=== PATIENT | male | born 1930 | race Caucasian/White ===

== ENCOUNTER 2017-12-23 12:04 | Inpatient (IN) ==
--- NOTE | 2017-12-23 12:11 | Emergency Department Report ---
SOB HPI - General Chief Complaint: Shortness of Breath/Dyspnea Stated Complaint: difficulty breathing Time Seen by Provider: 12/23/17 12:11 Source: patient Mode of arrival: ambulatory Limitations: no limitations - History of Present Illness Patient is a 87-year-old male, presents to the emergency department for evaluation of shortness of breath. Patient originally yesterday felt that he might have gotten some pill fragments stuck in the back of his throat, did see his primary care doctor who started him on third-generation cephalosporin. Patient today complains of increasing shortness of breath, cough, productive sputum. Patient was instructed to [facility] for evaluation. Patient called EMS, had himself brought to [facility]. On arrival vital signs are within defined limits satting 97% on room air. Patient's primary care physician did helpfully call report. - Related Data Home Medications Medication Instructions Recorded Confirmed diphenhydrAMINE HCl [Benadryl] 50 mg PO HS #0 01/21/13 12/23/17 Mirtazapine [Remeron] 15 mg PO HS #0 08/07/13 12/23/17 Cyanocobalamin (B-12) [Vit. B-12] 1,000 mcg INJ MONTHLY #0 08/22/15 12/23/17 Ferrous Sulfate [Iron] 325 mg PO DAILY #0 08/22/15 12/23/17 Lactose-Reduced Food [Boost High 1 bottle PO DAILY PRN #0 08/22/15 12/23/17 Protein] Pravastatin Sodium 80 mg PO HS #0 08/22/15 12/23/17 Clopidogrel Bisulfate [Clopidogrel] 75 mg PO DAILY 12/14/17 12/23/17 Doxycycline [Vibramycin] 100 mg PO BID 12/14/17 12/23/17 Duloxetine HCl 20 mg PO DAILY 12/14/17 12/23/17 Dutasteride 0.5 mg PO HS 12/14/17 12/23/17 Furosemide [Lasix 20 mg Tab] 10 mg PO DAILY 12/14/17 12/23/17 Silodosin [Rapaflo] 8 mg PO HS 12/14/17 12/23/17 Sotalol [Betapace] 80 mg PO BID 12/14/17 12/23/17 Allergies Allergy/AdvReac Type Severity Reaction Status Date / Time Iodinated Contrast- Oral and Allergy Unknown RASH, Verified 12/23/17 12:10 IV Dye FLU-LIKE S/S Penicillins Allergy Unknown RASH,FLU-LIKE Verified 12/23/17 12:10 SYMPTOMS clindamycin AdvReac Unknown DIARRHEA Verified 12/23/17 12:10 Review of Systems Constitutional: Reports: chills, weakness. Denies: fever ENT: Denies: throat pain, dental pain Cardiovascular: Reports: dyspnea on exertion. Denies: chest pain, palpitations Respiratory: Reports: cough, dyspnea, wheezes Gastrointestinal: Denies: abdominal pain, nausea, vomiting Genitourinary: Denies: dysuria, frequency Neurological: Reports: weakness (generalized nonspecific). Denies: headache PFSH Patient Stated Medical History Cardiac Arrhythmia Yes: A-FIB, ON PLAVIX Other Yes: STAGE 4 KIDNEY DISEASE MRSA Yes Depression Yes Surgical History: Surgical History. General: back, colonoscopy, hernia, other , tonsils. Cardiac: vascular bypass. Reproductive/: TURP. Joint: shoulder ( - Social History Smoking status: Never smoker Substance use type: does not use Alcohol intake frequency: does not drink Physical Exam - General General appearance: alert, in no apparent distress - ENT ENT exam: Present: normal oropharynx, mucous membranes moist, TM's normal bilaterally - Neck Neck exam: Present: trachea midline. Absent: tenderness - Chest Chest inspection: Present: normal inspection, symmetric chest wall rise. Absent : tenderness, rash - Respiratory Respiratory exam: Present: crackles (crackles in all pope in the right lobe and lower left lobe). Absent: respiratory distress, wheezes, accessory muscle use, prolonged expiratory phase - Cardiovascular Cardiovascular exam: Present: regular rate, normal rhythm, normal heart sounds - Abdominal Exam Abdominal exam: Present: soft, normal bowel sounds. Absent: distention, tenderness - Skin Skin exam: Present: warm, dry - Neurological Exam Neurological exam: Present: alert, oriented X3 - Psychiatric Psychiatric exam: Present: normal affect, normal mood Shortness of Breath/Dyspnea - [facility] Narrative Medical decision making narrative: Discuss case with Dr. Olson, she requests input from Dr. Hurtado re: bronchoscopy Discuss case with Dr. Hurtado, he will be able to perform bronchoscopy today at 4. Discuss case with Dr. Olson she will admit - Differential Diagnosis Likely: acute exacerbation of chronic obstructive airways disease, congestive heart failure, community acquired pneumonia, asthma with exacerbation, pulmonary embolism - Medical Records Attestation: I reviewed the patient's medical records. - Lab Data Attestation: I reviewed the patient's lab results. Result diagrams: 12/23/17 12:21 12/23/17 12:21 - Radiology Data Attestation: I reviewed the patient's radiology results. Chest x-ray: No acute cardiopulmonary findings Disposition Clinical Impression: Aspiration pneumonitis Disposition: 02 To [facility] Acute Care Condition: Stable - Seen By: physician
--- OUTSIDE RECORDS SUMMARY | 2017-12-23 12:15 | External Medical Summary | Referral Summary ---
:1930 Author Organization [facility], [facility] Address [address] [place] [address] [place] [id number] Care Team Providers Name Role Phone Flaquito Benoit [place] Primary Care Physician Encounter VC Date(s): 08/27/15 - 08/27/15 [facility] [place] [address] [place] [phone] [place] Discharge Disposition: 01-Home or Self Care Attending Physician: Adeline Johnson APRN Admitting Physician: Adeline Johnson APRN Vital Signs Most recent to oldest [Reference Range]: 1 Apical Heart Rate [60-100 bpm] 58 bpm *LOW* (08/27/15 9:16 AM) Blood Pressure [90-140/60-90 mmHg] 101/50 mmHg (08/27/15 9:16 AM) SpO2 90 % (08/27/15 9:16 AM) Problem List Condition Effective Dates Status Health Status Informant Backache (finding)(Confirmed) Active Coronary arteriosclerosis Active (disorder)(Confirmed) Generalized osteoarthritis Active (disorder)(Confirmed) History of multiple wide mouth bladder Active diverticula(Confirmed) Sigmoid diverticulosis(Confirmed) 02/16/08 Active Dyslipidemia(Confirmed) Active Dysphagia (disorder)(Confirmed) Active Essential hypertension Active (disorder)(Confirmed) 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(Confirmed) History of urinary retention & Active gross bladder trabeculation(Confirmed) BCC (basal cell carcinoma)(Confirmed) Active Mixed hyperlipidemia Active (disorder)(Confirmed) OA (osteoarthritis)(Confirmed) Active Peripheral vascular disease Active (disorder)(Confirmed) Sensorineural hearing loss, Active bilateral(Confirmed) Skin conditions(Confirmed) Active Sepsis(Confirmed)1 01/21/13 Active UTI (urinary tract 01/21/13 Active infection)(Confirmed)2 Chicken pox(Confirmed) Active 1hospitalization at [id number] at [facility] Allergies, Adverse Reactions, Alerts Substance Reaction Severity Status iodine Hives/Skin Rash Active penicillin Hives/Skin Rash Active Medications Avodart 0.5 mg oral capsule See Instructions, TAKE 1 CAPSULE BY MOUTH EVERY DAY, # 30 caps, 11 Refill(s), Pharmacy: [facility] [place], [place], TAKE 1 CAPSULE BY MOUTH EVERY DAY Start Date: 08/27/15 Status: OrderedB-12 See Instructions, 1,000 mcg INJECTION EVERY 28 DAYS, 0 Refill(s) Start Date: 11/16/14 Status: OrderedBenadryl 50 mg, Oral, Bedtime (once a day), 0 Refill(s) Start Date: 11/16/14 Status: OrderedEliquis 5 mg oral tablet 2.5 mg 0.5 tabs, Oral, BID, # 60 tabs, 0 Refill(s) Start Date: 11/15/14 Status: OrderedLasix 20 mg oral tablet 20 mg 1 tabs, Oral, Daily, 0 Refill(s) Start Date: 11/16/14 Status: Orderedlisinopril 20 mg oral tablet 20 mg 1 tabs, Oral, Daily, 0 Refill(s) Start Date: 11/16/14 Status: Orderedminocycline 100 mg oral tablet 100 mg 1 tabs, Oral, BID, 0 Refill(s) Start Date: 11/16/14 Status: Orderedpravastatin 80 mg oral tablet 80 mg 1 tabs, Oral, Bedtime (once a day), 0 Refill(s) Start Date: 11/16/14 Status: OrderedRapaflo 8 mg oral capsule See Instructions, TAKE 1 CAPSULE BY MOUTH EVERY DAY WITH A MEAL, # 30 caps, 5 Refill(s), Pharmacy: [facility] [place], [place], TAKE 1 CAPSULE BY MOUTH EVERY DAY WITH A MEAL Start Date: 08/27/15 Status: Orderedsotalol 80 mg oral tablet 80 mg 1 tabs, Oral, BID, 0 Refill(s) Start Date: 11/16/14 Status: Ordered Results No data available for this section Immunizations Vaccine Date Refusal Reason influenza virus vaccine, live 03/28/12 pneumococcal 23-polyvalent vaccine 03/31/11 tetanus-diphth toxoids (Td) adult/adol 06/11/09 zoster vaccine live 01/26/08 Procedures Procedure Date Related Diagnosis Body Site L2-5 Lami/Fusion1 06/06/12 Colonoscopy w/sigmoid diverticulosis2 02/16/08 Cystoscopy 03/15/06 Holmium laser ablation 03/15/06 Urethral dilatation 03/15/06 Perpheral Vascular Surgery 1999 Appendectomy 1988 Cholecystectomy 1988 Tonsillectomy 193 Circumcision FEMEROL BYPASS3 Hernia repair Prostate Surgery Rotator cuff repair 1hospitalization. Dr. [id number] history of colon carcinoma. Repeat in 5 years.3RIGHT Social History Social History Type Response Smoking Status Former smoker; Type: Cigarettes Assessment and Plan No data available for this section
--- OUTSIDE RECORDS SUMMARY | 2017-12-23 12:15 | External Medical Summary | Referral Summary ---
:1930 Author Organization [address] [facility] Address [address] [place] [address] Care Team Providers Name Role Phone Flaquito Benoit Primary Care Physician Encounter [facility] [id number] Date(s): 11/16/14 - 11/16/[address] [facility] [address] [place], [place] [address] Final: CLOSED FRACTURE OF LUMBAR VERTEBRA WITHOUT MENTION OF SPINAL CORD INJURY Final: OSTEOPOROSIS, UNSPECIFIED Final: UNSPECIFIED ESSENTIAL HYPERTENSION Final: MIXED HYPERLIPIDEMIA Final: CORONARY ATHEROSCLEROSIS OF [place] CORONARY ARTERY Final: DIVERTICULOSIS OF COLON (WITHOUT MENTION OF HEMORRHAGE) Final: PERIPHERAL VASCULAR DISEASE, UNSPECIFIED Final: OSTEOARTHROSIS, GENERALIZED, INVOLVING UNSPECIFIED SITE Final: PERSONAL HISTORY OF OTHER MALIGNANT NEOPLASM OF SKIN Final: Personal History of Tobacco Use Final: Long-Term (Current) Use of Other Medications Final: FRACTURE, CAUSE UNSPECIFIED Discharge Disposition: 01-Home or Self Care Attending Physician: Flaquito Benoit MD Admitting Physician: Flaquito Benoit MD Vital Signs Most recent to oldest [Reference Range]: 1 Temperature Temporal Artery [36.3-37.8 degC] 35.6 degC *LOW* (11/16/14 1:20 PM) Peripheral Pulse Rate [60-100 bpm] 71 bpm (11/16/14 10:02 AM) Heart Rate Monitored [60-100 bpm] 69 bpm (11/16/14 3:55 PM) Respiratory Rate [14-20 br/min] 16 br/min (11/16/14 3:55 PM) Blood Pressure [90-140/60-90 mmHg] 116/59 mmHg (11/16/14 3:55 PM) SpO2 99 % (11/16/14 3:55 PM) Problem List Condition Effective Dates Status Health [...] Active infection)(Confirmed)2 Chicken pox(Confirmed) Active 1hospitalization at [id number] at [facility] Allergies, Adverse Reactions, Alerts Substance Reaction Severity Status iodine Hives/Skin Rash Active penicillin Hives/Skin Rash Active Medications Avodart 0.5 mg oral capsule See Instructions, TAKE 1 CAPSULE BY MOUTH EVERY DAY, # 30 caps, 5 Refill(s), eRx : [facility], TAKE 1 CAPSULE BY MOUTH EVERY DAY Start Date: 01/15/15 Status: OrderedB-12 See Instructions, 1,000 mcg INJECTION [...] A MEAL, # 30 caps, 5 Refill(s), eRx: [facility], TAKE 1 CAPSULE BY MOUTH EVERY DAY WITH A MEAL Start Date: 01/15/15 Status: Orderedsotalol 80 mg oral tablet 80 mg 1 tabs, Oral, BID, 0 Refill(s) Start Date: 11/16/14 Status: Ordered Results Hematology Most recent to oldest [Reference Range]: 1 WBC [4.8-10.8 10*3/uL] 13.2 10*3/uL *HI* (11/16/14 10:13 AM) RBC [4.60-6.20 10*6/uL] 4.20 10*6/uL *LOW* (11/16/14 10:13 AM) Hgb [14.0-18.0 gm/dL] 13.3 gm/dL *LOW* (11/16/14 10:13 AM) Hct [42.0-52.0 %] 39.5 % *LOW* (11/16/14 10:13 AM) MCV [82.0-99.0 fL] 94.0 fL (11/16/14 10:13 AM) MCH [27.0-32.0 pg] 31.7 pg (11/16/14 10:13 AM) MCHC [32.0-36.0 gm/dL] 33.7 gm/dL (11/16/14 10:13 AM) RDW [11.5-14.5 %] 12.9 % (11/16/14 10:13 AM) Platelet [150-400 10*3/uL] 248 10*3/uL (11/16/14 10:13 AM) MPV [9.4-12.3 fL] 9.9 fL (11/16/14 10:13 AM) Immature Granulocytes [0.0-1.0 %] 1.6 % *HI* (11/16/14 10:13 AM) Neutrophils [51-75 %] 65 % (11/16/14 10:13 AM) Lymphocytes [20-46 %] 18 % *LOW* (11/16/14 10:13 AM) Monocytes [4-11 %] 9 % (11/16/14 10:13 AM) Eosinophils [0-4 %] 6 % *HI* (11/16/14 10:13 AM) Basophils [0-2 %] 1 % (11/16/14 10:13 AM) Neutro Absolute [1.90-7.00 10*3] 8.66 10*3 *HI* (11/16/14 10:13 AM) Lymph Absolute [0.80-3.30 10*3] 2.35 10*3 (11/16/14 10:13 AM) Faulk Absolute [0.30-1.00 10*3] 1.18 10*3 *HI* (11/16/14 10:13 AM) Eos Absolute [0.00-0.50 10*3] 0.77 10*3 *HI* (11/16/14 10:13 AM) Baso Absolute [0.00-0.20 10*3] 0.06 10*3 (11/16/14 10:13 AM) Coagulation Most recent to oldest [Reference Range]: 1 INR [0.9-1.2] * 1 (11/16/14 10:13 AM) PTT [25.0-35.0] * (11/16/14 10:13 AM) 1Result Comment: Corrected result; previously reported as 0.9 on 11/16/14 at 10: 34 by I/AUT Immunizations Vaccine Date Refusal Reason influenza virus vaccine, live 03/28/12 pneumococcal 23-polyvalent vaccine 03/31/11 tetanus-diphth toxoids (Td) adult/adol 06/11/09 zoster vaccine live 01/26/08 Procedures Procedure Date Related Diagnosis Body Site Percutaneous vertebral augmentation, including 11/16/14 cavity creation (fracture reduction and bone biopsy included when performed) using mechanical device (eg, kyphoplasty), 1 vertebral body, unilateral or bilateral cannulation, inclusive of all imaging guidance L2-5 Lami/Fusion1 06/06/12 Colonoscopy w/sigmoid diverticulosis2 02/16/08 Cystoscopy 03/15/06 Holmium laser ablation 03/15/06 Urethral dilatation 03/15/06 Perpheral Vascular Surgery 1999 Appendectomy 1988 Cholecystectomy 1988 Tonsillectomy 1937 Circumcision FEMEROL BYPASS3 Hernia repair Prostate Surgery Rotator cuff repair 1hospitalization. Dr. [id number] history of colon carcinoma. Repeat in 5 years.3RIGHT Social History Social History Type Response Smoking Status Former smoker; Type: Cigarettes Assessment and Plan No data available for this section
[2017-12-23] MEDS ORDERED: AZITHROMYCIN IV 500 MG in NS 250ml 250 ML IV ONE (12:17)
[2017-12-23] MEDS: SALINE FLUSH 10ml SYRINGE IVF PRN (12:22)
--- NOTE | 2017-12-23 13:06 | XRay Report ---
Indication: right-sided possible aspiration, Rales PROCEDURE: XR chest 2V: Encounter: Initial Comparison: 08/16/2013 Findings: There are some calcified granulomas in the right lung base. Heart size is normal. The lungs are clear. There is no focal opacity to suggest atelectasis or pneumonia. No mediastinal or hilar adenopathy. No pleural effusion. There is no significant tortuosity of the descending thoracic aorta. There is mild scoliosis with mild degenerative disc disease of the thoracic spine. There is a vascular stent in the right subclavian region. IMPRESSION: Evidence for prior granulomatous disease. No definite lobar consolidation or pleural effusion.. .
[2017-12-23] MEDS ORDERED: NS FLUSH BAG 500ml IV PRN (13:36)
[2017-12-23] MEDS ORDERED: SILVER NITRATE APPLICATOR TOP ONE (13:42)
--- NOTE | 2017-12-23 14:31 | Pulmonology Consult Note ---
History of Present Illness Consult date: 12/23/17 Requesting physician: Yissel Olson Reason for consult: pneumonia Chief complaint: aspiration History of present illness: Patient is a 87-year-old male, presents to the emergency department for evaluation of shortness of breath. Patient originally yesterday felt that he might have gotten some pill fragments stuck in the back of his throat, did see his primary care doctor who started him on third-generation cephalosporin ( Omnicef). Patient today complains of increasing shortness of breath, cough, productive sputum. Patient was instructed to [facility] for evaluation. Patient called EMS, had himself brought to [facility]. On arrival vital signs are within defined limits O2sats 97% on room air. He has leukocytosis with left shift. I was asked to evaluate the patient for aspiration pneumonia. - Related Data Home Medications Medication Instructions Recorded Confirmed diphenhydrAMINE HCl [Benadryl] 50 mg PO HS #0 01/21/13 12/23/17 Mirtazapine [Remeron] 15 mg PO HS #0 08/07/13 12/23/17 Cyanocobalamin (B-12) [Vit. B-12] 1,000 mcg INJ MONTHLY #0 08/22/15 12/23/17 Ferrous Sulfate [Iron] 325 mg PO DAILY #0 08/22/15 12/23/17 Lactose-Reduced Food [Boost High 1 bottle PO DAILY PRN #0 08/22/15 12/23/17 Protein] Pravastatin Sodium 80 mg PO HS #0 08/22/15 12/23/17 Clopidogrel Bisulfate [Clopidogrel] 75 mg PO DAILY 12/14/17 12/23/17 Doxycycline [Vibramycin] 100 mg PO BID 12/14/17 12/23/17 Duloxetine HCl 20 mg PO DAILY 12/14/17 12/23/17 Dutasteride 0.5 mg PO HS 12/14/17 12/23/17 Furosemide [Lasix 20 mg Tab] 10 mg PO DAILY 12/14/17 12/23/17 Silodosin [Rapaflo] 8 mg PO HS 12/14/17 12/23/17 Sotalol [Betapace] 80 mg PO BID 12/14/17 12/23/17 Allergies Allergy/AdvReac Type Severity Reaction Status Date / Time Iodinated Contrast- Oral and Allergy Unknown RASH, Verified 12/23/17 12:10 IV Dye FLU-LIKE S/S Penicillins Allergy Unknown RASH,FLU-LIKE Verified 12/23/17 12:10 SYMPTOMS clindamycin AdvReac Unknown DIARRHEA Verified 12/23/17 12:10 PFSH Patient Stated Medical History Cardiac Arrhythmia Yes: A-FIB, ON PLAVIX Other Yes: STAGE 4 KIDNEY DISEASE MRSA Yes Depression Yes Surgical History: Surgical History. General: back, colonoscopy, hernia, other , tonsils. Cardiac: vascular bypass. Reproductive/: TURP. Joint: shoulder ( - Social History Smoking status: Never smoker Substance use type: does not use Alcohol intake frequency: does not drink PFS Surgical History: Surgical History. General: back, colonoscopy, hernia, other , tonsils. Cardiac: vascular bypass. Reproductive/: TURP. Joint: shoulder ( - Social History Smoking status: Never smoker Substance use type: does not use Alcohol intake frequency: does not drink Medications Home Medications Medication Instructions Recorded Confirmed Type diphenhydrAMINE HCl [Benadryl] 50 mg PO HS #0 01/21/13 12/23/17 History Mirtazapine [Remeron] 15 mg PO HS #0 08/07/13 12/23/17 History Cyanocobalamin (B-12) [Vit. B-12] 1,000 mcg INJ MONTHLY #0 08/22/15 12/23/17 History Ferrous Sulfate [Iron] 325 mg PO DAILY #0 08/22/15 12/23/17 History Lactose-Reduced Food [Boost High 1 bottle PO DAILY PRN #0 08/22/15 12/23/17 History Protein] Pravastatin Sodium 80 mg PO HS #0 08/22/15 12/23/17 History Clopidogrel Bisulfate [Clopidogrel] 75 mg PO DAILY 12/14/17 12/23/17 History Doxycycline [Vibramycin] 100 mg PO BID 12/14/17 12/23/17 History Duloxetine HCl 20 mg PO DAILY 12/14/17 12/23/17 History Dutasteride 0.5 mg PO HS 12/14/17 12/23/17 History Furosemide [Lasix 20 mg Tab] 10 mg PO DAILY 12/14/17 12/23/17 History Silodosin [Rapaflo] 8 mg PO HS 12/14/17 12/23/17 History Sotalol [Betapace] 80 mg PO BID 12/14/17 12/23/17 History Allergies Allergy/AdvReac Type Severity Reaction Status Date / Time Iodinated Contrast- Oral and Allergy Unknown RASH, Verified 12/23/17 12:10 IV Dye FLU-LIKE S/S Penicillins Allergy Unknown RASH,FLU-LIKE Verified 12/23/17 12:10 SYMPTOMS clindamycin AdvReac Unknown DIARRHEA Verified 12/23/17 12:10 Exam Vital signs: Temperature 98.6 F 12/23/17 12:10 Pulse Rate 71 12/23/17 13:30 Respiratory Rate 22 12/23/17 12:10 Blood Pressure 105/52 12/23/17 13:30 Pulse Oximetry 97 12/23/17 13:30 - Constitutional no acute distress, cachectic - Routine HEENT Exam Head: Present: normocephalic. Absent: abrasion Eye: Absent: conjunctival icterus - Routine Neck Exam Present: supple, full ROM - Routine Respiratory Exam Present: decreased breath sounds. Absent: accessory muscle use - Routine Cardiovascular Exam Present: RRR - Routine Abdominal Exam Present: soft. Absent: guarding - Routine Extremities Exam Absent: cyanosis, clubbing, edema - Routine Skin Exam Present: warm. Absent: rash - Routine Neurological Exam Present: alert. Absent: motor deficit - Routine Psychiatric Exam Present: normal affect Results - Laboratory Findings CBC and BMP: 12/23/17 12:21 12/23/17 12:21 PT/INR, D-dimer D-Dimer 875 NG/ML (0-230) H 12/23/17 12:21 - Diagnostic Findings Chest x-ray: report reviewed, image reviewed Assessment and Plan (1) Aspiration into lower respiratory tract Status: Acute Assessment and plan: associated with coughing, hoarseness and leukocytosis with left shift. possible aspiration pneumonia. Recommend therapeutic bronchoscopy with BAL for micro. Empiric antibiotics. Discussed with son in law Current Visit: Yes - Time Spent With Patient Total time spent is greater than 50% in coordination of care (as documented) at patient's floor/unit and/or counseling patient: 25 - 35 minutes
[2017-12-23] MEDS ORDERED: LACRI-LUBE EYE OINT 3.5gm ONE (14:38)
--- NOTE | 2017-12-23 14:40 | History & Physical Report ---
History of Present Illness Date: 12/23/17 Chief complaint: "Choked" on a pill yesterday morning. HPI: Pt is an 87 yo male who presented to ED today for increasing weakness and respiratory concerns after choking on a pill yesterday around 0915. He states he was swallowing the pill and choked and had immediate pain/burning. He has had increasing sputum production, coughing and "gurgling" in his lungs. He saw his PCP (Dr. Benoit) yesterday and was started on an antibiotic for possible aspiration pneumonia. He hasn't been eating or drinking since this episode, so he is getting weaker, thus family opted to bring him in for evaluation. He also had a fall last week (reportedly b/c he had new shoes and this caused the fall) w/ resultant skin tear to R arm and contusion to forehead. At this point, he doesn't c/o SOA and the pain has resolved, but he is very weak and continues to have significant noises in his chest. In ED, his CXR showed no definite lobar consolidation, but his R lung sounds are significantly abnl and his WBC is 28.5. Dr. Hurtado was consulted and plans to bronch pt later this afternoon. Review of Systems All systems PM: 10-point ROS was reviewed, no additional remarkable complaints except (weakness, not eating or drinking, nauseated, hoarse voice, lungs "gurgling," cough copious amt of mucous) Past Medical History Medical History Updates: CKD, diffuse atherosclerosis w/ axillo-femoral bypass/ stent, paroxysmal afib, basal cell CA R lower eyelid, BPH, ? chronic leukemia ( follows with Dr. Virk), h/o MRSA infection (back) - on chronic atbx, HTN, HLD , depression Surgical History: spinal fusion 2011, colonoscopy, hernia repair x3, tonsils, GB , appy. vascular bypass - axillo-bi femoral 2010(w/ axillary stent place 07/15) , TURP, L shoulder Rotator cuff, surgical removal of basal cell cancer R lower eyelid Family History: Father - from peritonitis (secondary to GB surgery) Mother - from peritonitis (colostomy complication) Family History: As Above - Social History Smoking status: Former smoker (smoked from 49- - 2p) Substance use type: does not use Alcohol intake frequency: does not drink Household members: none (has a LOGISTICS SERVICE REPRESENTATIVE who comes to the home 1 hour each day and daughter helps out routinely) Current occupational status: retired Current residence: Apartment/Private Home Social history: Dr Jhonny Benoit - PCP Dr Valverde - Vascular Dr Hwang - cardiology Dr. Duran - ID Dr. Virk - mystery shopper Dr Galvez -opthalmologist Dr Valdivia - junior java developer Dr Francis - quality improvement coordinator (rn) Medications Home Medications Medication Instructions Recorded Confirmed Type diphenhydrAMINE HCl [Benadryl] 50 mg PO HS #0 01/21/13 12/23/17 History Mirtazapine [Remeron] 15 mg PO HS #0 08/07/13 12/23/17 History Cyanocobalamin (B-12) [Vit. B-12] 1,000 mcg INJ MONTHLY #0 08/22/15 12/23/17 History Ferrous Sulfate [Iron] 325 mg PO DAILY #0 08/22/15 12/23/17 History Lactose-Reduced Food [Boost High 1 bottle PO DAILY PRN #0 08/22/15 12/23/17 History Protein] Pravastatin Sodium 80 mg PO HS #0 08/22/15 12/23/17 History Clopidogrel Bisulfate [Clopidogrel] 75 mg PO DAILY 12/14/17 12/23/17 History Doxycycline [Vibramycin] 100 mg PO BID 12/14/17 12/23/17 History Duloxetine HCl 20 mg PO DAILY 12/14/17 12/23/17 History Dutasteride 0.5 mg PO HS 12/14/17 12/23/17 History Furosemide [Lasix 20 mg Tab] 10 mg PO DAILY 12/14/17 12/23/17 History Silodosin [Rapaflo] 8 mg PO HS 12/14/17 12/23/17 History Sotalol [Betapace] 80 mg PO BID 12/14/17 12/23/17 History Allergies Allergy/AdvReac Type Severity Reaction Status Date / Time Iodinated Contrast- Oral and Allergy Unknown RASH, Verified 12/23/17 12:10 IV Dye FLU-LIKE S/S Penicillins Allergy Unknown RASH,FLU-LIKE Verified 12/23/17 12:10 SYMPTOMS sulfamethoxazole AdvReac Intermediate Renal Verified 12/23/17 16:55 [From Bactrim] Insufficiency trimethoprim [From Bactrim] AdvReac Intermediate Renal Verified 12/23/17 16:55 Insufficiency clindamycin AdvReac Unknown DIARRHEA Verified 12/23/17 12:10 Exam Vital Signs: Temperature 97.4 F 12/23/17 14:24 Pulse Rate 70 12/23/17 14:24 Respiratory Rate 12 12/23/17 14:24 Blood Pressure 116/84 12/23/17 14:24 Pulse Oximetry 99 12/23/17 14:24 Height/Weight/BMI: Height 1.78 m Weight 59 kg Body Mass Index 18.6 - Constitutional Present: no acute distress, well developed, thin - Routine HEENT Exam Head: Present: normocephalic, hematoma (forehead) Eye: Present: EOMI, PERRL ENT: Present: mucous membranes moist, oropharynx clear Comments: voice is raspy/hoarse - Routine Neck Exam Present: supple. Absent: lymphadenopathy, thyromegaly - Routine Respiratory Exam Present: rhonchi, wheezes (R lung field) - Routine Cardiovascular Exam Present: RRR, no murmur - Routine Abdominal Exam Present: soft, normoactive bowel sounds. Absent: tenderness, distended - Routine Extremities Exam Present: edema (1+ R, tr L (chronic for pt since bypass surgery)), normal capillary refill - Routine Skin Exam Present: dry, warm - Routine Neurological Exam Present: alert, oriented X3, CN II-XII intact - Routine Psychiatric Exam Present: normal affect, cooperative Results - Labs CBC & Chem 7: 12/23/17 12:21 12/23/17 12:21 - Imaging and Cardiology Chest x-ray Additional comments: Date of Exam: 12/23/17 Indication: right-sided possible aspiration, Rales PROCEDURE: XR chest 2V: Findings: There are some calcified granulomas in the right lung base. Heart size is normal. The lungs are clear. There is no focal opacity to suggest atelectasis or pneumonia. No mediastinal or hilar adenopathy. No pleural effusion. There is no significant tortuosity of the descending thoracic aorta. There is mild scoliosis with mild degenerative disc disease of the thoracic spine. There is a vascular stent in the right subclavian region. IMPRESSION: Evidence for prior granulomatous disease. No definite lobar consolidation or pleural effusion.. Assessment and Plan Assessment and Plan: Assessment Sepsis (SIRS: leukocytosis, tachypnea. Source: Lung) Possible aspiration pneumonia Possible bronchial foreign body Normocytic anemia CKD Stage 3 (Dr. Francis - baseline Cr 1.4) - Pt to avoid JYOTI, ARBs, NSAIDs and Bactrim Probable renal stenosis, b/l carotid stenosis HTN HLD Nonrheumatic aortic regurgitation Diffuse atherosclerosis w/ axillo-bifemoral bypass 2010 with R axillary artery stent placement 07/15 (Dr Valverde) - on Plavix Paroxysmal afib (Dr. Hwang) - previously on warfarin but DC'd d/t fall risk Basal cell CA R lower eyelid (Dr. Galvez/Shea) BPH w/ chronic urinary retention (previously saw Dr. Johnson) ? chronic leukemia (follows with Dr. Virk) H/o MRSA infection (back) - on chronic atbx Iron deficiency B12 deficiency Depression/anorexia Plan Admit, IP. Stay to exceed 2 overnights for bronch and tx of aspiration pneumonitis and given multiple comorbidities and age. Consult to Dr Hurtado - planning bronchoscopy this afternoon Duonebs, Flagyl, Rocephin (despite PCN allergy, pt has tolerated Omnicef) for aspiration PNA Discussed venous dopplers to further w-u DDimer with pt. Pt declines as his sxs started after choking on the pill. Low likelihood of PE. Dietitian consult re: borderline low BMI/anorexia. Speech consult re: possible aspiration. PT/OT for eval of functional abilities and for strengthening. SCD's for VTE ppx Protonix IV BID for GI ppx and aspiration Full Code Dr Benoit - PCP. Case discussed with Dr. Olson, Dr. Benoit and nursing staff. 12/23/2017-6:45 PM-I examined the patient independently. I reviewed this chart, the patient history, and the WEB USER EXPERIENCE STRATEGIST's/PA's documented findings as above. We discussed and formulated the assessment and plan as above with the additions below.-Dr. Olson The patient was seen this evening in his room accompanied by his son. The patient had undergone bronchoscopy earlier today revealing trachea and main michelle were inflamed with severe mucosal injury and exudate consistent with chronic aspiration. I did discuss this with Dr. Hurtado and he recommended nothing by mouth status and consult speech therapy in the morning. These results were discussed with the patient and his son. They had previously been discussed with him by Dr. Hurtado. The patient complains of mild shortness of breath. He has a little burning pain in his chest. He denies any other pain other than feeling constipated and feels like he needs to urinate. He states he has not eaten since yesterday morning. He has drank very little. He choked on a pill yesterday morning. Before that he had noticed at times choking on water. On exam he is alert and in no acute distress. Chest reveals coarse breath sounds bilaterally. Cardiovascular reveals a regular rate and rhythm. Abdomen is soft, nontender, with hypoactive bowel sounds. Extremities are free of edema. Impression and plan Probable acute on chronic aspiration-nothing by mouth status for now including meds(discussed with the patient's nurse) IV fluids-monitor for fluid overload Consult speech therapy to see the patient tomorrow Hopefully we can resume his oral meds tomorrow Repeat Chest x-ray in the morning Rocephin and Flagyl for aspiration/rule out aspiration pneumonia Recheck CBC tomorrow regarding leukocytosis DVT Prophylaxis: SCD's GI Prophylaxis: Protonix Resuscitation Status: Full Code - Physician Narrative Physician: Yissel Olson MD Narrative: Date: 12/23/17 Time: 1436 Hospital Course Summary Disclaimer: The visit summary below is not to be considered part of the above Progress Note. Hospital Course: 12/23/17 Admit, IP. Stay to exceed 2 overnights for bronch and tx of aspiration pneumonitis and given multiple comorbidities and age. Consult to Dr Hurtado - planning bronchoscopy this afternoon Duonebs, Flagyl, Rocephin (despite PCN allergy, pt has tolerated Omnicef) for aspiration PNA Discussed venous dopplers to further w-u DDimer with pt. Pt declines as his sxs started after choking on the pill. Low likelihood of PE. Dietitian consult re: borderline low BMI/anorexia. Speech consult re: possible aspiration. PT/OT for eval of functional abilities and for strengthening. SCD's for VTE ppx Protonix IV BID for GI ppx and aspiration Full Code Dr Benoit - PCP
[2017-12-23] MEDS ORDERED: LIDOCAINE VISCOUS 2% ORAL LIQUID 15ml ONE (15:58)
[2017-12-23] MEDS ORDERED: EPINEPHrine 1mg/ml PRESERVATIVE-FREE INJ AMP ONE (16:02)
[2017-12-23] MEDS ORDERED: NS 1,000 ML IV SCH (16:15)
[2017-12-23] MEDS ORDERED: PROPOFOL 20 ML ONE (16:19)
[2017-12-23] MEDS ORDERED: MIDAZOLAM 2mg/2ml INJECTION ONE (16:19)
[2017-12-23] MEDS ORDERED: KETAMINE 500 MG/10 ML INJECTION ONE (16:19)
[2017-12-23] MEDS ORDERED: SUCCINYLCHOLINE 20mg/mL 10mL INJECTION ONE (16:21)
[2017-12-23] MEDS ORDERED: ONDANSETRON 4 MG/2 ML INJECTION IVP PRN (16:48)
[2017-12-23] MEDS ORDERED: ACETAMINOPHEN 500 MG TABLET PO PRN (16:48)
--- NOTE | 2017-12-23 16:55 | Anesthesia Preoperative Report ---
Anesthesia Preoperative Record - Date and Time Date: 12/23/17 Preoperative Diagnosis: aspiration pneumonitis NPO Since Date: 12/22/17 NPO Since Time: 20:00 Allergies/Adverse Reactions: Allergies Allergy/AdvReac Type Severity Reaction Status Date / Time Iodinated Contrast- Oral and Allergy Unknown RASH, Verified 12/23/17 12:10 IV Dye FLU-LIKE S/S Penicillins Allergy Unknown RASH,FLU-LIKE Verified 12/23/17 12:10 SYMPTOMS clindamycin AdvReac Unknown DIARRHEA Verified 12/23/17 12:10 - Vital Signs Vital Signs: Temperature 97.4 F 12/23/17 14:24 Pulse Rate 70 12/23/17 14:24 Respiratory Rate 12 12/23/17 14:24 Blood Pressure 116/84 12/23/17 14:24 Pulse Oximetry 99 12/23/17 14:24 Height and Weight: Height 5 ft 10 in Weight 59 kg Body Mass Index 18.6 - Medications Inpatient Medications: Current Medications Acetaminophen (Tylenol) 500 mg PO Q5H PRN PRN Reason: Discomfort Albuterol/Ipratropium (Duoneb) 3 ml AEROSOL RTQID DIANE Clopidogrel Bisulfate (Plavix) 75 mg PO DAILY DIANE Diphenhydramine HCl (Benadryl) 50 mg PO HS DIANE Doxycycline Hyclate (Vibramycin) 100 mg PO BID DIANE Duloxetine HCl (Cymbalta) 20 mg PO DAILY DIANE Dutasteride (Avodart) 0.5 mg PO HS DIANE Furosemide (Lasix 20 Mg Tab) 10 mg PO DAILY DIANE Sodium Chloride (Normal Saline) 1,000 mls @ 50 mls/hr IV .Q20H DIANE Ceftriaxone Sodium 1 g/ Sodium (Chloride) 100 mls @ 200 mls/hr IV Q24H DIANE Metronidazole/Sodium Chloride (Flagyl Iv Premix) 500 mg in 100 mls @ 100 mls/ hr IV Q8H DIANE Mirtazapine (Remeron) 15 mg PO HS DIANE Non-Formulary Medication (Pravastatin Sodium [Pravastatin Sodium]) 80 mg PO HS DIANE Ondansetron HCl (Zofran) 4 mg IVP Q6H PRN PRN Reason: Nausea &/or vomiting Pantoprazole Sodium (Protonix Iv) 40 mg IVP BID DIANE Silodosin (Rapaflo) 8 mg PO HS DIANE Sodium Chloride (Iv Flush) 10 - 80 ml IVF PRN PRN PRN Reason: Flushing Last Admin: 12/23/17 12:22 Dose: 10 ml Sodium Chloride (Normal Saline) 500 ml IV PRN PRN Last Admin: 12/23/17 13:48 Dose: 500 ml Sotalol HCl (Betapace) 80 mg PO BID [facility] Home Medications: Home Medications Medication Instructions Recorded Confirmed Type diphenhydrAMINE HCl [Benadryl] 50 mg PO HS #0 01/21/13 12/23/17 History Mirtazapine [Remeron] 15 mg PO HS #0 08/07/13 12/23/17 History Cyanocobalamin (B-12) [Vit. B-12] 1,000 mcg INJ MONTHLY #0 08/22/15 12/23/17 History Ferrous Sulfate [Iron] 325 mg PO DAILY #0 08/22/15 12/23/17 History Lactose-Reduced Food [Boost High 1 bottle PO DAILY PRN #0 08/22/15 12/23/17 History Protein] Pravastatin Sodium 80 mg PO HS #0 08/22/15 12/23/17 History Clopidogrel Bisulfate [Clopidogrel] 75 mg PO DAILY 12/14/17 12/23/17 History Doxycycline [Vibramycin] 100 mg PO BID 12/14/17 12/23/17 History Duloxetine HCl 20 mg PO DAILY 12/14/17 12/23/17 History Dutasteride 0.5 mg PO HS 12/14/17 12/23/17 History Furosemide [Lasix 20 mg Tab] 10 mg PO DAILY 12/14/17 12/23/17 History Silodosin [Rapaflo] 8 mg PO HS 12/14/17 12/23/17 History Sotalol [Betapace] 80 mg PO BID 12/14/17 12/23/17 History Is Patient on Beta Toñito?: Yes - Medical History Respiratory: DENIES: Asthma Cardiovascular: Reports: Arrhythmia (A-FIB, ON PLAVIX) DENIES: Congestive Heart Failure (denies) Gastrointestional: DENIES: Gastroesophageal Reflux Disease Neuro/Musculoskeletal: Reports: Depression Other History: Reports: Blood Transfusions - Surgical History GI Surgery/Treatments: Reports: Appendectomy, Cholecystectomy Musculoskeletal Surgery/Tx: Reports: Shoulder Arthroscopy (LEFT ROTATOR CUFF REPAIR) Anesthesia Reactions: None Hx Family Anesthesia Reaction: No History of Motion Sickness: No - Social History Smoking Status: Former smoker (smoked from '49-'76 - 2ppd) Hx Chewing Tobacco Use: No Second Hand Exposure: No Substance Use Type: does not use Alcohol Intake Frequency: does not drink - Pertinent Findings EKG: Sinus Rhythm - Physical Exam Respiratory Exam: Present: bilateral breath sounds equal (slightly coarse) Cardiovascular Exam: Present: regular rate and rhythm - Airway Assessment Mallampati Score: II TMD: 3 Fingerbreadths Neck Extension: good Overall Assessment: may be difficult mask vent - ASA ASA Score: 3 - Plan Anesthesia: General Inhalation Gases - Discussion Discussion: Discussed risks/options/alternatives of anesthesia and questions answered. Patient consents. Nursing pain assessment noted. Present for Discussion: family member (son in law) Attestation Statement: Prior to the delivery of any anesthetic medication, I examined the patient, developed the plan, obtained the patient's consent and discussed the risk and benefits of the procedure with the patient/guardian. - Additional Information Seen by Anesthesia: Yes
--- NOTE | 2017-12-23 16:56 | Procedure Note ---
Date of procedure: 12/23/17 Pre-op diagnosis: aspiration penumonia Post-op diagnosis: same Procedure: Bronchoscopy DATE: 12/23/17 Reason: aspiration pneumonia Time Out: completed Patient underwent anesthesia with LMA. see anesthesia notes for details The scope was passed into the trachea via LMA airway. The trachea and main michelle were inflamed with severe mucosal injury and exudate consistent with chronic aspiration R main, RUL, bronchus intermedius, RML, RLL showed diffuse mucosal inflammatory exudate consistent with chronic aspiration L main, LATRICIA, LLL were normal 1. Therapeutic aspiration of retained mucus secretions and debris 2. BAL was performed and sent for micro, cytology studies There were no complications
--- NOTE | 2017-12-23 17:09 | Anesthesia Postoperative Note ---
- Date and Time Date: 12/23/17 Time: 17:09 - Status Patient Participated in Evaluation: Patient Participated in Person Vital Signs: Temperature 97.3 F 12/23/17 16:45 Pulse Rate 79 12/23/17 17:05 Respiratory Rate 19 12/23/17 17:05 Blood Pressure 137/63 12/23/17 17:05 Pulse Oximetry 100 12/23/17 17:05 Respiratory Function: Airway Patent Cardiovascular Function: Regular Pulse EKG: Sinus Rhythm Mental Status: Alert and Oriented Pain Intensity: 0 Hydration: IV Infusing Complications During Recover: None Apparent - Follow-Up Instructions Instructions: Per Surgeon
[2017-12-23] MEDS: CEFTRIAXONE 1 G in NS 100 ML IV SCH (17:43)
[2017-12-23] MEDS: MetroNIDAZOLE PB 500 MG/100 ML BAG IV SCH (18:36)
[2017-12-23] MEDS: DUTASTERIDE 0.5 MG CAPSULE PO SCH (20:00)
[2017-12-23] MEDS: DiphenhydrAMINE 25 MG CAPSULE PO SCH (20:00)
[2017-12-23] MEDS: MIRTAZAPINE 15 MG TABLET PO SCH (20:00)
[2017-12-23] MEDS: NS 1,000 ML IV SCH (20:58)
[2017-12-23] MEDS: SOTALOL 80 MG TABLET PO SCH (20:59)
[2017-12-23] MEDS: PANTOPRAZOLE 40 MG INJECTION IVP SCH (20:59)
[2017-12-23] MEDS: PRAVASTATIN 40 MG TABLET PO SCH (20:59)
[2017-12-23] MEDS: ALBUTEROL/IPRATROPIUM 2.5mg-0.5mg/3ml NEB AEROSOL SCH (23:10)
[2017-12-24] MEDS: MetroNIDAZOLE PB 500 MG/100 ML BAG IV SCH ×3 (03:16→17:38)
[2017-12-24] MEDS: ALBUTEROL/IPRATROPIUM 2.5mg-0.5mg/3ml NEB AEROSOL SCH ×4 (07:40→21:13)
[2017-12-24] MEDS ORDERED: CLOPIDOGREL 75 MG TABLET PO SCH (09:00)
--- NOTE | 2017-12-24 09:02 | Pulmonology Progress Note ---
Subjective Principal diagnosis: Aspiration pna Interval history: Pt up to EOB, states he has cough with some sputum, still with some SOB but doing a little better. Exam Vital signs: Temperature 97.4 F 12/24/17 03:26 Pulse Rate 76 12/24/17 03:26 Respiratory Rate 20 12/24/17 07:40 Blood Pressure 108/60 12/24/17 03:26 Pulse Oximetry 98 12/24/17 07:40 Inpatient Medications: Generic Name Dose Route Start Last Admin Trade Name Freq PRN Reason Stop Dose Admin Acetaminophen 500 mg 12/23/17 16:48 Tylenol PO Q5H PRN Discomfort Albuterol/Ipratropium 3 ml 12/23/17 19:00 12/24/17 07:40 Duoneb AEROSOL 3 ml RTQID DIANE Administration Clopidogrel Bisulfate 75 mg 12/24/17 09:00 Plavix PO DAILY DIANE Diphenhydramine HCl 50 mg 12/23/17 21:00 12/23/17 20:00 Benadryl PO Not Given HS DIANE Doxycycline Hyclate 100 mg 12/23/17 21:00 12/23/17 20:00 Vibramycin PO Not Given BID DIANE Duloxetine HCl 20 mg 12/24/17 09:00 Cymbalta PO DAILY DIANE Dutasteride 0.5 mg 12/23/17 21:00 12/23/17 20:00 Avodart PO Not Given HS DIANE Furosemide 10 mg 12/24/17 09:00 Lasix 20 Mg Tab PO DAILY DIANE Ceftriaxone Sodium 1 g/ Sodium 100 mls @ 200 mls/hr 12/23/17 16:45 12/23/17 18:13 Chloride IV Infused Q24H DIANE Infusion Metronidazole/Sodium Chloride 500 mg in 100 mls @ 100 mls/hr 12/23/17 16:45 12/24/17 04:16 Flagyl Iv Premix IV Infused Q8H DIANE Infusion Sodium Chloride 1,000 mls @ 100 mls/hr 12/23/17 18:45 12/24/17 04:55 Normal Saline IV 100 mls/hr .Q10H DIANE Infusion Mirtazapine 15 mg 12/23/17 21:00 12/23/17 20:00 Remeron PO Not Given HS DIANE Ondansetron HCl 4 mg 12/23/17 16:48 Zofran IVP Q6H PRN Nausea &/or vomiting Pantoprazole Sodium 40 mg 12/23/17 21:00 12/23/17 20:59 Protonix Iv IVP 40 mg BID DIANE Administration Pravastatin Sodium 80 mg 12/23/17 21:00 12/23/17 20:59 Pravachol PO Not Given HS DIANE Silodosin 8 mg 12/23/17 21:00 12/23/17 20:59 Rapaflo PO Not Given HS DIANE Sodium Chloride 10 - 80 ml 12/23/17 12:17 12/23/17 12:22 Iv Flush IVF 10 ml PRN PRN Administration Flushing Sodium Chloride 500 ml 12/23/17 13:36 12/23/17 13:48 Normal Saline IV 500 ml PRN PRN Administration Sotalol HCl 80 mg 12/23/17 21:00 12/23/17 20:59 Betapace PO Not Given BID DIANE Discontinued Medications Generic Name Dose Route Start Last Admin Trade Name Freq PRN Reason Stop Dose Admin Azithromycin 500 mg/ Sodium 250 mls @ 250 mls/hr 12/23/17 12:17 12/23/17 13: 44 Chloride IV 12/23/17 13:16 Infused ONCE ONE Infusion Sodium Chloride 1,000 mls @ 50 mls/hr 12/23/17 16:15 12/23/17 17:30 Normal Saline IV Infused .Q20H DIANE Infusion Silver Nitrate/Potassium Nitrate 1 each 12/23/17 13:42 12/23/17 13:48 Silver Nitrate Applicator TOP 12/23/17 13:43 1 each O ONE Administration - Constitutional no acute distress, average body habitus, cooperative - Routine HEENT Exam Head: Present: normocephalic, atraumatic Eye: Present: EOMI, PERRL - Routine Neck Exam Present: supple, full ROM, trachea midline - Routine Respiratory Exam Present: decreased breath sounds, rhonchi. Absent: accessory muscle use, patient mechanically ventilated Comments: rhonchi RLL - Routine Cardiovascular Exam Present: RRR, S1, S2, no murmur - Routine Abdominal Exam Present: soft, normoactive bowel sounds - Routine Extremities Exam Present: no edema, non tender, full ROM - Routine Back/Spine/Pelvis Exam Back/Spine: Present: full ROM - Routine Skin Exam Present: intact, dry - Routine Neurological Exam Present: alert, oriented X3, CN II-XII intact - Routine Psychiatric Exam Present: normal affect, normal thought process Results - Laboratory Findings Laboratory: Laboratory Results - last 48 hr 12/23/17 12/24/17 12/24/17 16:29 04:36 04:36 WBC 26.3 H* RBC 3.44 L Hgb 10.7 L Hct 32.1 L MCV 93.3 MCH 31.1 MCHC 33.3 RDW Std Deviation 48.6 Plt Count 174 MPV 10.9 Immature Gran % (Auto) Not performed Neut % (Auto) Not performed Lymph % (Auto) Not performed Stokes % (Auto) Not performed Eos % (Auto) Not performed Baso % (Auto) Not performed Neut # (Auto) Not performed Lymph # (Auto) Not performed Stokes # (Auto) Not performed Eos # (Auto) Not performed Baso # (Auto) Not performed Abs Immat Gran (auto) Not performed Neutrophils % (Manual) 78.0 H Band Neutrophils % 4.0 Lymphocytes % (Manual) 13.0 L Monocytes % (Manual) 5.0 Neutrophils # (Manual) 20.5 H Band Neutrophils # 1.1 Lymphocytes # (Manual) 3.4 Monocytes # (Manual) 1.3 H Poikilocytosis 1+ RBC Morph Comment Abnormal Turbidity < 20 Sodium 140 Potassium 3.5 L Chloride 108 H Carbon Dioxide 23 Anion Gap 9 BUN 22.0 H Creatinine 1.1 GFR Calculation 63 BUN/Creatinine Ratio 20 Glucose 94 Calculated Osmolality 272 Calcium 8.2 L Icterus Index < 2 Specimen Hemolysis < 15 Fluid Type Bronchoalveolarlavag BAL Appearance Cloudy BAL Color Colorless BAL RBC 3000 BAL Neutrophils 92 H BAL Lymphocytes 5 BAL Eosinophils 2 H BAL Basophils 0 BAL Monocyte/Macrophage 2 BAL Other Cells 0 BAL Total Cell Count Assessment and Plan (1) Smoking hx Status: Acute Current Visit: Yes (2) Aspiration into lower respiratory tract Status: Acute Current Visit: Yes - Assessment and Plan Plan: Pt currently on RA and tolerating well. On BT's with A/A QID, still with rhonchi RLL on exam and difficulty coughing up stuff. Will add acapella. S/P bronchoscopy yesterday, cx's still pending, prelim gram stain with many neutrophils but no organism. WBC slightly better 28>26, afebrile, currently on rocephin and doxy. Will check CXR today and Wednesday, will follow. - Time Spent With Patient Total time spent is greater than 50% in coordination of care (as documented) at patient's floor/unit and/or counseling patient: less than 15 minutes
[2017-12-24] MEDS: NS 1,000 ML IV SCH (09:08)
[2017-12-24] MEDS: PANTOPRAZOLE 40 MG INJECTION IVP SCH ×2 (09:48→20:25)
--- NOTE | 2017-12-24 09:48 | XRay Report ---
LOCATION OF DICTATION: [place] EXAM: XR chest 2V HISTORY: pna COMPARISON: December 23, 2014. FINDINGS: The heart size is normal. The mediastinal configuration is unremarkable. Vascular stent is noted overlying the right upper hemithorax. Limited depth of inspiration. Slight granulomas again demonstrated within the right lung base compatible with chronic inactive granulomatous disease. There are no consolidating opacities or pleural effusions. There is no evidence for a pneumothorax. The osseous structures are within normal limits. IMPRESSION: 1. Chronic inactive granulomatous disease without evidence for developing pneumonia. .
[2017-12-24] MEDS: FUROSEMIDE 20 MG TABLET PO SCH (10:19)
[2017-12-24] MEDS: SOTALOL 80 MG TABLET PO SCH ×2 (10:19→20:26)
[2017-12-24] MEDS: DULOXETINE 20 MG CAPSULE PO SCH (10:19)
--- NOTE | 2017-12-24 10:29 | Fluoroscopy Report ---
Indication:oropharyngeal dsyphagia Procedure:FL barium swallow modified MODIFIED BAR. SWALLOW STUDY: Technique: Videofluoroscopy was performed in conjunction with a livestock sales representative from speech pathology and a separate report and recommendations will be provided. Varying gradations of barium from thin to solid were administered. Findings: Deep tracheal penetration with eventual aspiration was visualized with all consistencies of barium. On the AP view the bolus showed no obvious preference for either side. Impression: Deep tracheal penetration with eventual aspiration with all consistencies of barium. Please see the speech pathology report for additional details and recommendations. Fluoroscopy dose: 1.20 mGy (Cumulative air kerma) Viet Tripp RPA/JULIENNE performed this under my direct supervision. .
[2017-12-24] MEDS ORDERED: POTASSIUM CHLORIDE INJ 20 MEQ in NS 1,000 ML IV SCH (12:00)
[2017-12-24] MEDS ORDERED: NS with KCL 20 mEq 1,000 ML IV SCH (13:00)
--- NOTE | 2017-12-24 14:45 | XRay Report ---
EXAM: XR abdomen 1V DICTATION LOCATION: [facility] INDICATION: to determine if NG is in adequate placement to start TF COMPARISON STUDY: None available. FINDINGS: Abdomen: Placement of NG tube which extends into the body the stomach. The side-port is located about the gastroesophageal junction. This could be advanced an additional 2 to 3 cm. There are few mildly distended gas containing loops of bowel overlying the mid abdomen. The findings could indicate underlying ileus. There is no free intraperitoneal air. Skeletal Structures: There is moderate spondylosis demonstrated within the lumbar spine.. Vertebroplasty is noted about the L1 vertebra. Posterior spinal fixation and laminectomy defects extending from L2 through L5 level. IMPRESSION: 1. Placement of nasoenteric catheter with the tip extending to the body the stomach. The side-port is located about the GE junction. Recommend advancing 2 to 3 cm. 2. Mildly prominent gas containing bowel loops. Leading consideration is ileus. Follow-up is recommended. No free intraperitoneal air. .
[2017-12-24 15:51] VITALS: BMI 19.0
--- NOTE | 2017-12-24 16:39 | XRay Report ---
EXAM: XR abdomen 1V DICTATION LOCATION: [facility] INDICATION: check for ngt placement. COMPARISON STUDY: None available. FINDINGS: Abdomen: Interval advancement of the Nasoenteric catheter which now extends into the body and fundus of the stomach with the tip overlying the body. There is mild gaseous distention of the bowel loops which may be secondary to ileus. No clear evidence for bowel obstruction or free air. Mild bibasilar atelectasis. Multiple leads overlie the patient. Posterior spinal fixation is demonstrated. Vertebroplasty at L1 vertebra. Impression: 1. Interval advancement of the nasoenteric catheter which is in good position. 2. The bowel loops are stable in appearance. .
[2017-12-24] MEDS: CEFTRIAXONE 1 G in NS 100 ML IV SCH (16:42)
--- NOTE | 2017-12-24 20:08 | Progress Note ---
- Date 12/24/17 Subjective: The patient was seen twice in his room earlier today. He underwent modified barium swallow and verbal report from the speech therapist was that he had severe aspiration with both thin and thickened liquids as well as with putting. She recommended strict nothing by mouth. The patient states that his burning pain in his chest is improving. His breathing is a little better and cough is a little better. He denies any other pain. He states he has been chronically weak. He has lost about 50 pounds. He has had progressive numbness and tingling in his feet and legs and is not able to drive because he could not feel the foot pedals. Objective Vital signs: Temperature 98.8 F 12/24/17 15:34 Pulse Rate 76 12/24/17 16:00 Respiratory Rate 20 12/24/17 16:25 Blood Pressure 135/83 12/24/17 15:34 Pulse Oximetry 97 12/24/17 16:25 Height/Weight/BMI: Height 1.78 m Weight 60.1 kg Body Mass Index 19.0 Comments: GEN-alert, oriented, no acute distress. Does become tearful when we discussed his poor swallow HEENT-sclera anicteric, oropharynx is moist NECK-supple CV-regular rate and rhythm, 2/6 systolic murmur CHEST-coarse breath sounds bilaterally ABD-soft, nontender with positive bowel sounds -no Ramesh EXT-no edema NEURO-cranial nerves II through XII grossly intact, motor strength 5 over 5 and equal in the upper extremities, leg strength proximal is 4 over 5 and equal. Distal leg and foot motor strength is 5 over 5 SKIN-warm and dry, multiple skin lesions with history of skin cancer. Grayish blue discoloration on his face from medication. Results - Labs CBC & Chem 7: 12/24/17 04:36 12/24/17 04:36 Labs: Prealbumin low at 9.8. Vitamin B-12 greater than 1000. TSH normal at 1.11. Phosphorus normal at 3.9. Microbiology Results: Microbiology 12/23/17 16:29 Bronchial Washing Acid Fast Bacilli Culture & Smear - Preliminary 12/23/17 16:29 Mini-Bal Fungal Culture and Stain - Preliminary 12/23/17 16:29 Bal, Right Lower Lobe Gram Stain - Final 12/23/17 16:29 Bal, Right Lower Lobe Bronchial Aspirate Culture - Preliminary Early growth - Impressions Chest x-ray today shows chronic inactive granulomatous disease without evidence for developing pneumonia Assessment and Plan Assessment and Plan: Assessment Severe aspiration of all consistencies -recommend strict nothing by mouth Sepsis (SIRS: leukocytosis, tachypnea. Source: Lung) aspiration pneumonia/pneumonitis Normocytic anemia CKD Stage 3 (Dr. Francis - baseline Cr 1.4) - Pt to avoid JYOTI, ARBs, NSAIDs and Bactrim Probable renal stenosis, b/l carotid stenosis HTN HLD Nonrheumatic aortic regurgitation Diffuse atherosclerosis w/ axillo-bifemoral bypass 2010 with R axillary artery stent placement 07/15 (Dr Valverde) - on Plavix Paroxysmal afib (Dr. Hwang) - previously on warfarin but DC'd d/t fall risk Basal cell CA R lower eyelid (Dr. Galvez/Shea) BPH w/ chronic urinary retention (previously saw Dr. Johnson) ? chronic leukemia (follows with Dr. 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 White count is down slightly. I had a long talk with the patient and his son-in-law regarding his barium swallow. We discussed options and the patient states he is not ready for comfort care and would like to consider PEG tube placement in order to improve his nutrition, and have a safer way to obtain nutrition, fluids and to take his pills. He understands that there is still some risk for aspiration even with PEG tube placement. I did consult Dr. Cash to see the patient. He stated that if the patient did decide for PEG tube after his consultation, the procedure with likely not be performed until Wednesday at the earliest. NG tube was placed today and to feedings and free water initiated. We will advance to feeding as tolerated. Decrease or discontinue IV fluids tomorrow depending upon how he is tolerating tube feedings. Keep the head of the bed elevated at least 45 at all times to prevent aspiration. The nurse was notified to call if he should have worsening in his breathing or difficulties with tube feeds. Continue breathing treatments Continue PT OT. Family would like to consider inpatient rehabilitation at discharge. Will obtain an IRU screen. Check renal panel, CBC, magnesium in the morning. DVT Prophylaxis: SCD's GI Prophylaxis: Protonix Resuscitation Status: Full Code - Physician Narrative Narrative: Date: 12/24/17 Time: 2004 Hospital Course Summary Disclaimer: The visit summary below is not to be considered part of the above Progress Note. Hospital Course: 12/23/17 Admit, IP. Stay to exceed 2 overnights for bronch and tx of aspiration pneumonitis and given multiple comorbidities and age. Consult to Dr Hurtado - planning bronchoscopy this afternoon Duonebs, Flagyl, Rocephin (despite PCN allergy, pt has tolerated Omnicef) for aspiration PNA Discussed venous dopplers to further w-u DDimer with pt. Pt declines as his sxs started after choking on the pill. Low likelihood of PE. Dietitian consult re: borderline low BMI/anorexia. Speech consult re: possible aspiration. PT/OT for eval of functional abilities and for strengthening. SCD's for VTE ppx Protonix IV BID for GI ppx and aspiration Full Code Dr Benoit - PCP
[2017-12-24] MEDS: DiphenhydrAMINE 25 MG CAPSULE PO SCH (20:25)
[2017-12-24] MEDS: DUTASTERIDE 0.5 MG CAPSULE PO SCH (20:26)
[2017-12-24] MEDS: MIRTAZAPINE 15 MG TABLET PO SCH (20:27)
[2017-12-24] MEDS: PRAVASTATIN 40 MG TABLET PO SCH (20:27)
[2017-12-24] MEDS: NS with KCL 20 mEq 1,000 ML IV SCH (23:00)
[2017-12-25] MEDS: MetroNIDAZOLE PB 500 MG/100 ML BAG IV SCH ×3 (00:54→18:00)
[2017-12-25] MEDS: NS with KCL 20 mEq 1,000 ML IV SCH (03:39)
[2017-12-25] MEDS: ALBUTEROL/IPRATROPIUM 2.5mg-0.5mg/3ml NEB AEROSOL SCH ×4 (08:56→20:45)
[2017-12-25] MEDS: PANTOPRAZOLE 40 MG INJECTION IVP SCH ×2 (10:26→23:31)
[2017-12-25] MEDS: FUROSEMIDE 20 MG TABLET PO SCH (10:26)
[2017-12-25] MEDS: SOTALOL 80 MG TABLET PO SCH ×2 (10:26→23:28)
[2017-12-25] MEDS: DULOXETINE 20 MG CAPSULE PO SCH (10:26)
--- NOTE | 2017-12-25 11:33 | Progress Note ---
- Date 12/25/17 Subjective: The patient was seen this morning in his room accompanied by his son-in-law and one of his daughters. That he's feeling okay. He feels like he is breathing okay. He continues to have an occasional cough. The NG tube is annoying. He has some fullness in his abdomen, but states that is not unusual. He states when he had the free water flush, he felt like fluid was backing up into his chest for a brief period of time. He does not have that sensation any longer. He had a brief episode of nausea earlier this morning but that has resolved. He has not had any vomiting. His nurse states that residuals were 0 when checked the last time. He is currently getting 30 ML's of tube feed per hour continuously. He states he chronically has some alternating constipation and diarrhea. He states he often goes for 5 days without a bowel movement. The patient states that he is passing gas today but has not had a bowel movement since admission Objective Vital signs: Temperature 99.1 F 12/25/17 11:27 Pulse Rate 81 12/25/17 11:27 Respiratory Rate 16 12/25/17 11:27 Blood Pressure 136/67 12/25/17 11:27 Pulse Oximetry 99 12/25/17 11:27 Height/Weight/BMI: Height 1.78 m Weight 61.2 kg Body Mass Index 19.0 Comments: Afebrile, O2 sat 99%, pulse 81, blood pressure 136/67 GEN-alert, oriented, no acute distress HEENT-oropharynx is moist NECK-supple CV-regular rate and rhythm CHEST-clear to auscultation bilaterally ABD-soft, mild distention, positive tympany, positive bowel sounds, minimally tender, no rebound or guarding. Patient states he has had flatus but no BM -no Ramesh EXT-no edema NEURO-no focal deficits SKIN-warm and dry, multiple skin lesions with history of skin cancers Results - Labs CBC & Chem 7: 12/25/17 04:16 12/25/17 04:16 Labs: Phosphorus is normal at 3.1. Magnesium normal at 2.1. Calcium normal 8.2. Albumin low at 2.9. B 12 greater than 1000. TSH normal at 1.11 Microbiology Results: Microbiology 12/23/17 16:29 Bronchial Washing Acid Fast Bacilli Culture & Smear - Preliminary 12/23/17 16:29 Mini-Bal Fungal Culture and Stain - Preliminary 12/23/17 16:29 Bal, Right Lower Lobe Gram Stain - Final 12/23/17 16:29 Bal, Right Lower Lobe Bronchial Aspirate Culture - Preliminary Early growth - Impressions KUB report shows NG tube is present with the tip in the stomach. Dilated bowel loops suggesting mild diffuse ileus. Partial small bowel obstruction is not totally excluded. I have viewed the films myself and agree. Assessment and Plan Assessment and Plan: Assessment Severe aspiration of all consistencies -recommend strict nothing by mouth Sepsis (SIRS: leukocytosis, tachypnea. Source: Lung) aspiration pneumonia?/pneumonitis Normocytic anemia CKD Stage 3 (Dr. Francis - baseline Cr 1.4) - Pt to avoid JYOTI, ARBs, NSAIDs and Bactrim Probable renal stenosis, b/l carotid stenosis HTN HLD Nonrheumatic aortic regurgitation Diffuse atherosclerosis w/ axillo-bifemoral bypass 2010 with R axillary artery stent placement 07/15 (Dr Valverde) - on Plavix Paroxysmal afib (Dr. Hwang) - previously on warfarin but DC'd d/t fall risk Basal cell CA R lower eyelid (Dr. Galvez/She[facility]) BPH w/ chronic urinary retention (previously saw Dr. Johnson) ? chronic leukemia (follows with Dr. 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 No pneumonia or infiltrate seen on chest x-ray. White blood cell count is improving. Possibly decrease or de-escalate antibiotics tomorrow. Because of the patient's very poor swallow and high risk for continued aspiration, the patient was made strict nothing by mouth yesterday. The patient would like to consider PEG tube placement and Dr. Cash has been consulted. NG was placed yesterday and tube feeding was initiated. We'll start Reglan iv for possible ileus. Continue tube feeds at 30 ML's per hour and will hold off on increasing the rate at this time. Consider adding Dulcolax suppositories. Will discuss with Dr. Cash after he sees the patient and reviews his KUB, to make sure he agrees with continued tube feeding management. Continue to monitor residuals. Discontinue free water flushes. Continue IV fluids at 60 ML's per hour for now. Continue to have the head of the bed elevated at 45 at all times to prevent aspiration. Continue breathing treatments Renal panel, CBC, magnesium tomorrow. Recheck P2 Y 12 platelet function tomorrow IRU screen has been ordered Discussed with the patient's nurse, patient and family. Will discuss today with Dr. Cash. DVT Prophylaxis: SCD's GI Prophylaxis: Protonix Resuscitation Status: Full Code - Physician Narrative Narrative: Date: 12/25/17 Time: 1130 Hospital Course Summary Disclaimer: The visit summary below is not to be considered part of the above Progress Note. Hospital Course: 12/23/17 Admit, IP. Stay to exceed 2 overnights for bronch and tx of aspiration pneumonitis and given multiple comorbidities and age. Consult to Dr Hurtado - planning bronchoscopy this afternoon Duonebs, Flagyl, Rocephin (despite PCN allergy, pt has tolerated Omnicef) for aspiration PNA Discussed venous dopplers to further w-u DDimer with pt. Pt declines as his sxs started after choking on the pill. Low likelihood of PE. Dietitian consult re: borderline low BMI/anorexia. Speech consult re: possible aspiration. PT/OT for eval of functional abilities and for strengthening. SCD's for VTE ppx Protonix IV BID for GI ppx and aspiration Full Code Dr Benoit - PCP 12/24/2017 Plan Continue Rocephin and metronidazole for aspiration. White count is down slightly. I had a long talk with the patient and his son-in-law regarding his barium swallow. We discussed options and the patient states he is not ready for comfort care and would like to consider PEG tube placement in order to improve his nutrition, and have a safer way to obtain nutrition, fluids and to take his pills. He understands that there is still some risk for aspiration even with PEG tube placement. I did consult Dr. Cash to see the patient. He stated that if the patient did decide for PEG tube after his consultation, the procedure with likely not be performed until Wednesday at the earliest. NG tube was placed today and to feedings and free water initiated. We will advance to feeding as tolerated. Decrease or discontinue IV fluids tomorrow depending upon how he is tolerating tube feedings. Keep the head of the bed elevated at least 45 at all times to prevent aspiration. The nurse was notified to call if he should have worsening in his breathing or difficulties with tube feeds. Continue breathing treatments Continue PT OT. Family would like to consider inpatient rehabilitation at discharge. Will obtain an IRU screen. Check renal panel, CBC, magnesium in the morning.
[2017-12-25] MEDS: METOCLOPRAMIDE 10mg/2ml INJECTION IVP SCH ×3 (12:36→23:31)
[2017-12-25] MEDS: SALINE FLUSH 10ml SYRINGE IVF PRN (12:37)
[2017-12-25] MEDS: BISACODYL 10 MG SUPPOSITORY RECTALLY SCH ×2 (12:37→23:27)
[2017-12-25] MEDS: CEFTRIAXONE 1 G in NS 100 ML IV SCH (16:44)
[2017-12-25] MEDS: DOXYCYCLINE 25 MG/5 ML NG SCH (17:13)
[2017-12-25] MEDS: DiphenhydrAMINE 25 MG CAPSULE PO SCH (23:26)
[2017-12-25] MEDS: DUTASTERIDE 0.5 MG CAPSULE PO SCH (23:27)
[2017-12-25] MEDS: PRAVASTATIN 40 MG TABLET PO SCH (23:28)
[2017-12-25] MEDS: MIRTAZAPINE 15 MG TABLET PO SCH (23:32)
[2017-12-26] MEDS: MetroNIDAZOLE PB 500 MG/100 ML BAG IV SCH ×3 (01:56→16:54)
[2017-12-26] MEDS: METOCLOPRAMIDE 10mg/2ml INJECTION IVP SCH ×4 (03:24→21:57)
[2017-12-26] MEDS: NS with KCL 20 mEq 1,000 ML IV SCH (06:59)
[2017-12-26] MEDS: FUROSEMIDE 20 MG TABLET PO SCH (08:00)
[2017-12-26] MEDS: DULOXETINE 20 MG CAPSULE PO SCH (08:01)
[2017-12-26] MEDS: PANTOPRAZOLE 40 MG INJECTION IVP SCH ×2 (08:01→21:57)
[2017-12-26] MEDS: SOTALOL 80 MG TABLET PO SCH ×2 (08:01→21:59)
[2017-12-26] MEDS: BISACODYL 10 MG SUPPOSITORY RECTALLY SCH ×2 (08:01→14:34)
[2017-12-26] MEDS: DOXYCYCLINE 25 MG/5 ML NG SCH ×2 (08:02→16:53)
[2017-12-26] MEDS: ALBUTEROL/IPRATROPIUM 2.5mg-0.5mg/3ml NEB AEROSOL SCH ×4 (08:14→18:38)
--- NOTE | 2017-12-26 10:54 | XRay Report ---
Indication: Check placement for NG PROCEDURE: XR KUB: Encounter: Initial Comparison: December 24, 2017 Findings: Nasogastric tube remains stable in position coiled in the cardia and fundus region of the stomach. Lung bases are stable. No free air. Residual contrast material seen in the colon. Nonobstructive nonspecific bowel gas pattern overall with diffuse mild gaseous distention of bowel that could represent ileus. Degenerative and postoperative changes in the lumbar spine. Impression: Nasogastric tube remains in the cardia and fundal region of the stomach. There is a preliminary report by [facility]. .
[2017-12-26] MEDS: GUAIFENESIN 200mg/10ml ORAL LIQUID PO SCH ×2 (14:34→21:56)
--- NOTE | 2017-12-26 15:09 | Progress Note ---
- Date 12/26/17 Subjective: The patient was seen this afternoon in his room. No family was present at the time. His tube feeds have been increased from 30 ML's per hour to 40 ML's per hour. He has tolerated that without difficulties. He denies any abdominal discomfort or nausea. He had a small bowel movement yesterday. He is passing gas today. He has some pain in his throat which she states has been present since he choked on a pill prior to admission. He denies any chest pain. He denies any shortness of breath. He thinks his cough is getting better. He does complain that the phlegm in his throat is hard to clear. He has some chronic problems with skin breakdown on his distal great toes. He also has chronic heel pain and usually wears heel protector socks. He also states that his back hurts since having an x-ray and he thinks his skin was scraped by the x-ray plate. Objective Vital signs: Temperature 98.6 F 12/26/17 11:31 Pulse Rate 81 12/26/17 11:31 Respiratory Rate 14 12/26/17 12:01 Blood Pressure 131/58 12/26/17 11:31 Pulse Oximetry 98 12/26/17 12:01 Height/Weight/BMI: Height 1.78 m Weight 58.2 kg Body Mass Index 19.0 Comments: Afebrile, heart rate 81, respirations 16, blood pressure 131/58, O2 sat 98% on room air GEN-alert, oriented, no acute distress HEENT-NG in place, oropharynx is moist NECK-neck is supple CV-regular rate and rhythm CHEST-clear to auscultation bilaterally ABD-soft, mild distention which the patient states is chronic, nontender, positive bowel sounds -no Ramesh EXT-no edema NEURO-no focal deficits SKIN-multiple skin lesions from previous skin cancers. He has some skin breakdown on both of his great toes, bilateral heels are mildly tender, he has abrasions on his back on the skin over his spine and in the right mid back. No open lesions or ulcerations. Results - Labs CBC & Chem 7: 12/26/17 04:00 12/26/17 04:00 Labs: Phosphorus is normal, albumin 2.8 Microbiology Results: Microbiology 12/23/17 16:29 Bal, Right Lower Lobe Gram Stain - Final 12/23/17 16:29 Bal, Right Lower Lobe Bronchial Aspirate Culture - Preliminary Streptococcus viridans group Coag negative Staphylococcus 12/23/17 16:29 Bronchial Washing Acid Fast Bacilli Culture & Smear - Preliminary 12/23/17 16:29 Mini-Bal Fungal Culture and Stain - Preliminary Assessment and Plan Assessment and Plan: Assessment Severe aspiration of all consistencies -recommend strict nothing by mouth Sepsis (SIRS: leukocytosis, tachypnea. Source: Lung)-resolved aspiration pneumonia?/pneumonitis-chest x-ray has been clear, white count is trending down Normocytic anemia CKD Stage 3 (Dr. Francis - baseline Cr 1.4) - Pt to avoid JYOTI, ARBs, NSAIDs and Bactrim Probable renal stenosis, b/l carotid stenosis HTN HLD Nonrheumatic aortic regurgitation Diffuse atherosclerosis w/ axillo-bifemoral bypass 2010 with R axillary artery stent placement 07/15 (Dr Valverde) - on Plavix Paroxysmal afib (Dr. Hwang) - previously on warfarin but DC'd d/t fall risk Basal cell CA R lower eyelid (Dr. Galvez/Shea) BPH w/ chronic urinary retention (previously saw Dr. Johnson) ? chronic leukemia (follows with Dr. 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 Repeat chest x-ray tomorrow. Likely discontinue antibiotics if no infiltrates and white count not worsening. Tube feedings with two thirds TwoCal HN and one third water to run at 50 ML's per hour. Increase by 10 mL's every 6 hours as tolerated up to 65 ML's per hour as tolerated. Continue Reglan for now. Dulcolax suppositories as needed. Will discontinue scheduled Dulcolax. Decrease free water to 40 ML's per hour. Guaifenesin to help decrease the thickness of the phlegm in his throat. Wound and skin consult regarding skin breakdown on his toes and regarding heel pain and abrasions on his back Check CBC and basic metabolic profile tomorrow Recheck P2 Y 12 platelet function tomorrow Discussed with Dr. Cash, if testing shows platelets are no longer affected by Plavix and the patient is tolerating tube feedings, will likely undergo PEG tube placement in the next 1-2 days. Continue to elevate the head of the bed at 45 to prevent aspiration IRU screen in place Continue doxycycline for chronic MRSA infection Discussed with the patient, his nurse, and Dr. Cash. Will attempt to call patient's family to update them. - Physician Narrative Narrative: Date: 12/26/17 Time: 1504 Hospital Course Summary Disclaimer: The visit summary below is not to be considered part of the above Progress Note. Hospital Course: 12/23/17 Admit, IP. Stay to exceed 2 overnights for bronch and tx of aspiration pneumonitis and given multiple comorbidities and age. Consult to Dr Hurtado - planning bronchoscopy this afternoon Duonebs, Flagyl, Rocephin (despite PCN allergy, pt has tolerated Omnicef) for aspiration PNA Discussed venous dopplers to further w-u DDimer with pt. Pt declines as his sxs started after choking on the pill. Low likelihood of PE. Dietitian consult re: borderline low BMI/anorexia. Speech consult re: possible aspiration. PT/OT for eval of functional abilities and for strengthening. SCD's for VTE ppx Protonix IV BID for GI ppx and aspiration Full Code Dr Benoit - PCP 12/24/2017 Plan Continue Rocephin and metronidazole for aspiration. White count is down slightly. I had a long talk with the patient and his son-in-law regarding his barium swallow. We discussed options and the patient states he is not ready for comfort care and would like to consider PEG tube placement in order to improve his nutrition, and have a safer way to obtain nutrition, fluids and to take his pills. He understands that there is still some risk for aspiration even with PEG tube placement. I did consult Dr. Cash to see the patient. He stated that if the patient did decide for PEG tube after his consultation, the procedure with likely not be performed until Wednesday at the earliest. NG tube was placed today and to feedings and free water initiated. We will advance to feeding as tolerated. Decrease or discontinue IV fluids tomorrow depending upon how he is tolerating tube feedings. Keep the head of the bed elevated at least 45 at all times to prevent aspiration. The nurse was notified to call if he should have worsening in his breathing or difficulties with tube feeds. Continue breathing treatments Continue PT OT. Family would like to consider inpatient rehabilitation at discharge. Will obtain an IRU screen. Check renal panel, CBC, magnesium in the morning. Plan 12/25/2017 Continue Rocephin and metronidazole for aspiration. No pneumonia or infiltrate seen on chest x-ray. White blood cell count is improving. Possibly decrease or de-escalate antibiotics tomorrow. Because of the patient's very poor swallow and high risk for continued aspiration, the patient was made strict nothing by mouth yesterday. The patient would like to consider PEG tube placement and Dr. Cash has been consulted. NG was placed yesterday and tube feeding was initiated. We'll start Reglan iv for possible ileus. Continue tube feeds at 30 ML's per hour and will hold off on increasing the rate at this time. Consider adding Dulcolax suppositories. Will discuss with Dr. Cash after he sees the patient and reviews his KUB, to make sure he agrees with continued tube feeding management. Continue to monitor residuals. Discontinue free water flushes. Continue IV fluids at 60 ML's per hour for now. Continue to have the head of the bed elevated at 45 at all times to prevent aspiration. Continue breathing treatments Renal panel, CBC, magnesium tomorrow. Recheck P2 Y 12 platelet function tomorrow IRU screen has been ordered Discussed with the patient's nurse, patient and family. Will discuss today with Dr. Cash.
[2017-12-26] MEDS: CEFTRIAXONE 1 G in NS 100 ML IV SCH (15:56)
[2017-12-26] MEDS ORDERED: BISACODYL 10 MG SUPPOSITORY RECTALLY PRN (18:34)
[2017-12-26] MEDS: DUTASTERIDE 0.5 MG CAPSULE PO SCH (21:58)
[2017-12-26] MEDS: DiphenhydrAMINE 25 MG CAPSULE PO SCH (21:59)
[2017-12-26] MEDS: MIRTAZAPINE 15 MG TABLET PO SCH (21:59)
[2017-12-26] MEDS: PRAVASTATIN 40 MG TABLET PO SCH (22:00)
[2017-12-27] MEDS: METOCLOPRAMIDE 10mg/2ml INJECTION IVP SCH ×4 (03:15→20:31)
[2017-12-27] MEDS: MetroNIDAZOLE PB 500 MG/100 ML BAG IV SCH ×2 (03:15→08:30)
[2017-12-27] MEDS: ALBUTEROL/IPRATROPIUM 2.5mg-0.5mg/3ml NEB AEROSOL SCH ×4 (07:11→18:40)
[2017-12-27] MEDS: PANTOPRAZOLE 40 MG INJECTION IVP SCH ×2 (08:24→20:31)
--- NOTE | 2017-12-27 08:24 | XRay Report ---
INDICATION: pna PROCEDURE: CHEST 2-VIEWS UPRIGHT (PA & LAT) Encounter: Initial COMPARISON: December 24, 2017 FINDINGS: Lungs appear stable with mild fibrotic changes. No gross effusion or pneumothorax. No new or worsening airspace disease. Nasogastric tube in place, coiling in the stomach. Right subclavian artery stent. Old granulomatous changes in the right lung. Heart size and mediastinal contours are stable. Pulmonary vascularity appears stable. Impression: Stable chest. .
[2017-12-27] MEDS: DULOXETINE 20 MG CAPSULE PO SCH (08:32)
[2017-12-27] MEDS: SOTALOL 80 MG TABLET PO SCH ×2 (08:32→20:34)
[2017-12-27] MEDS: FUROSEMIDE 20 MG TABLET PO SCH (08:32)
[2017-12-27] MEDS: DOXYCYCLINE 25 MG/5 ML NG SCH ×2 (08:33→16:43)
[2017-12-27] MEDS: GUAIFENESIN 200mg/10ml ORAL LIQUID PO SCH ×3 (08:33→21:01)
--- NOTE | 2017-12-27 15:11 | Pulmonology Progress Note ---
Subjective Principal diagnosis: Aspiration pna Interval history: Pt sitting up in bed, states his breathing is doing ok. + cough with some sputum noted, awaiting to work with PT. Has NG with TF. Exam Vital signs: Temperature 97.1 F 12/27/17 11:40 Pulse Rate 78 12/27/17 11:40 Respiratory Rate 16 12/27/17 11:40 Blood Pressure 142/66 H 12/27/17 11:40 Pulse Oximetry 98 12/27/17 11:40 Inpatient Medications: Generic Name Dose Route Start Last Admin Trade Name Freq PRN Reason Stop Dose Admin Acetaminophen 500 mg 12/23/17 16:48 12/27/17 08:33 Tylenol PO 500 mg Q5H PRN Administration Discomfort Albuterol/Ipratropium 3 ml 12/23/17 19:00 12/27/17 11:11 Duoneb AEROSOL 3 ml RTQID DIANE Administration Bisacodyl 10 mg 12/26/17 18:34 Dulcolax RECTALLY TID PRN Constipation Diphenhydramine HCl 50 mg 12/23/17 21:00 12/26/17 21:59 Benadryl PO 50 mg HS DIANE Administration Doxycycline Monohydrate 100 mg 12/25/17 17:30 12/27/17 08:33 Vibramycin Liquid NG 100 mg BIDWM DIANE Administration Duloxetine HCl 20 mg 12/24/17 09:00 12/27/17 08:32 Cymbalta PO 20 mg DAILY DIANE Administration Dutasteride 0.5 mg 12/23/17 21:00 12/26/17 21:58 Avodart PO 0.5 mg HS DIANE Administration Furosemide 10 mg 12/24/17 09:00 12/27/17 08:32 Lasix 20 Mg Tab PO 10 mg DAILY DIANE Administration Guaifenesin 400 mg 12/26/17 15:00 12/27/17 08:33 Robitussin Liq PO 400 mg TID DIANE Administration Metoclopramide HCl 5 mg 12/25/17 11:30 12/27/17 08:28 Reglan IVP 5 mg Q6HR DIANE Administration Mirtazapine 15 mg 12/23/17 21:00 12/26/17 21:59 Remeron PO 15 mg HS DIANE Administration Ondansetron HCl 4 mg 12/23/17 16:48 Zofran IVP Q6H PRN Nausea &/or vomiting Pantoprazole Sodium 40 mg 12/23/17 21:00 12/27/17 08:24 Protonix Iv IVP 40 mg BID DIANE Administration Pravastatin Sodium 80 mg 12/23/17 21:00 12/26/17 22:00 Pravachol PO 80 mg HS DIANE Administration Silodosin 8 mg 12/23/17 21:00 12/26/17 21:58 Rapaflo PO 8 mg HS DIANE Administration Sodium Chloride 10 - 80 ml 12/23/17 12:17 12/25/17 12:37 Iv Flush IVF 10 ml PRN PRN Administration Flushing Sodium Chloride 500 ml 12/23/17 13:36 12/23/17 13:48 Normal Saline IV 500 ml PRN PRN Administration Sotalol HCl 80 mg 12/23/17 21:00 12/27/17 08:32 Betapace PO 80 mg BID DIANE Administration Discontinued Medications Generic Name Dose Route Start Last Admin Trade Name Freq PRN Reason Stop Dose Admin Bisacodyl 10 mg 12/25/17 12:22 12/26/17 14:34 Dulcolax RECTALLY 10 mg TID DIANE Administration Clopidogrel Bisulfate 75 mg 12/24/17 09:00 12/24/17 10:18 Plavix PO Not Given DAILY [facility] Doxycycline Hyclate 100 mg 12/23/17 21:00 12/24/17 20:28 Vibramycin PO Not Given BID DIANE Azithromycin 500 mg/ Sodium 250 mls @ 250 mls/hr 12/23/17 12:17 12/23/17 13: 44 Chloride IV 12/23/17 13:16 Infused ONCE ONE Infusion Sodium Chloride 1,000 mls @ 50 mls/hr 12/23/17 16:15 12/23/17 17:30 Normal Saline IV Infused .Q20H DIANE Infusion Ceftriaxone Sodium 1 g/ Sodium 100 mls @ 200 mls/hr 12/23/17 16:45 12/26/17 16:34 Chloride IV Infused Q24H DIANE Infusion Metronidazole/Sodium Chloride 500 mg in 100 mls @ 100 mls/hr 12/23/17 16:45 12/27/17 09:30 Flagyl Iv Premix IV Infused Q8H DIANE Infusion Sodium Chloride 1,000 mls @ 100 mls/hr 12/23/17 18:45 12/24/17 12:40 Normal Saline IV Infused .Q10H DIANE Infusion Potassium Chloride 20 meq/ 1,010 mls @ 60 mls/hr 12/24/17 12:00 12/25/17 03: 38 Sodium Chloride IV 12/24/17 22:00 Infused .[id number] DIANE Infusion Potassium Chloride/Sodium Chloride 1,000 mls @ 40 mls/hr 12/24/17 23:00 12/27 10:15 Ns With Kcl 20 Meq Premix IV Infused .Q24H DIANE Infusion Silver Nitrate/Potassium Nitrate 1 each 12/23/17 13:42 12/23/17 13:48 Silver Nitrate Applicator TOP 12/23/17 13:43 1 each O ONE Administration - Constitutional no acute distress, average body habitus, cooperative - Routine HEENT Exam Head: Present: normocephalic, atraumatic Eye: Present: EOMI, PERRL - Routine Neck Exam Present: supple, full ROM, trachea midline - Routine Respiratory Exam Present: decreased breath sounds, rhonchi. Absent: accessory muscle use, patient mechanically ventilated Comments: faint rhonchi - Routine Cardiovascular Exam Present: RRR, S1, S2, murmur - Routine Abdominal Exam Present: normoactive bowel sounds - Routine Extremities Exam Present: no edema, non tender, full ROM - Routine Back/Spine/Pelvis Exam Back/Spine: Present: full ROM - Routine Skin Exam Present: intact, dry - Routine Neurological Exam Present: alert, oriented X3, CN II-XII intact - Routine Psychiatric Exam Present: normal affect, normal thought process Results - Laboratory Findings Laboratory: Laboratory Results - last 48 hr 12/26/17 12/26/17 12/27/17 04:00 04:00 03:59 WBC 11.1 H 10.1 RBC 3.37 L 3.53 L Hgb 10.4 L 11.1 L Hct 31.6 L 33.6 L MCV 93.8 95.2 MCH 30.9 31.4 MCHC 32.9 33.0 RDW Std Deviation 49.8 50.8 H Plt Count 181 203 MPV 11.0 10.8 Neutrophils % (Manual) 63.0 58.0 Lymphocytes % (Manual) 18.0 L 28.0 Monocytes % (Manual) 8.0 6.0 Eosinophils % (Manual) 11.0 H 8.0 H Neutrophils # (Manual) 7.0 5.9 Lymphocytes # (Manual) 2.0 2.8 Monocytes # (Manual) 0.9 H 0.6 Eosinophils # (Manual) 1.2 H 0.8 H Poikilocytosis 1+ 1+ Anisocytosis 1+ 1+ Ovalocytes 1+ RBC Morph Comment Abnormal Abnormal Plt Funct P2Y12 Units Turbidity < 20 Sodium 143 Potassium 3.6 Chloride 111 H Carbon Dioxide 25 Anion Gap 7 BUN 18.0 Creatinine 1.0 GFR Calculation 71 BUN/Creatinine Ratio 18 Glucose 95 Calculated Osmolality 277 Calcium 8.1 L Phosphorus 2.9 Icterus Index < 2 Albumin 2.8 L Specimen Hemolysis < 15 12/27/17 12/27/17 03:59 03:59 WBC RBC Hgb Hct MCV MCH MCHC RDW Std Deviation Plt Count MPV Neutrophils % (Manual) Lymphocytes % (Manual) Monocytes % (Manual) Eosinophils % (Manual) Neutrophils # (Manual) Lymphocytes # (Manual) Monocytes # (Manual) Eosinophils # (Manual) Poikilocytosis Anisocytosis Ovalocytes RBC Morph Comment Plt Funct P2Y12 Units 225 Turbidity < 20 Sodium 143 Potassium 3.8 Chloride 109 H Carbon Dioxide 25 Anion Gap 9 BUN 14.0 Creatinine 1.0 GFR Calculation 71 BUN/Creatinine Ratio 14 Glucose 154 H Calculated Osmolality 279 Calcium 8.2 L Phosphorus 2.7 Icterus Index < 2 Albumin 2.9 L Specimen Hemolysis < 15 - Diagnostic Findings Chest x-ray: image reviewed (no infiltrates noted) Assessment and Plan (1) Smoking hx Status: Acute Current Visit: Yes (2) Aspiration into lower respiratory tract Status: Acute Current Visit: Yes (3) Dysphagia Status: Acute Current Visit: Yes - Assessment and Plan Plan: Pt currently on RA and tolerating well. On BT's with A/A QID with acapella, improved rhonchi RLL on exam. S/P bronchoscopy, cx's + strep veridans, on doxy now. WBC normal, afebrile. Pt with strict NPO 2/2 aspiration of all materials. Awaiting peg, TF per NG at this time. - Time Spent With Patient Total time spent is greater than 50% in coordination of care (as documented) at patient's floor/unit and/or counseling patient: less than 15 minutes
[2017-12-27] MEDS: MIRTAZAPINE 15 MG TABLET PO SCH (20:34)
[2017-12-27] MEDS: DiphenhydrAMINE 25 MG CAPSULE PO SCH (20:34)
[2017-12-27] MEDS: DUTASTERIDE 0.5 MG CAPSULE PO SCH (20:34)
[2017-12-27] MEDS: PRAVASTATIN 40 MG TABLET PO SCH (20:34)
--- NOTE | 2017-12-27 21:08 | Progress Note ---
- Date 12/27/17 Subjective: The patient was seen this morning in his room. He has been tolerating his tube feeds without difficulties. He is having a minimal cough. He denies any abdominal pain. He has some mild chronic abdominal distention which is unchanged. He complains of back pain after getting an x-ray. He denies any shortness of breath. He has not had any bowel movements today. He is urinating without difficulties. Objective Vital signs: Temperature 98.1 F 12/27/17 19:00 Pulse Rate 94 12/27/17 20:34 Respiratory Rate 12 12/27/17 18:40 Blood Pressure 176/82 H 12/27/17 19:00 Pulse Oximetry 98 12/27/17 19:00 Height/Weight/BMI: Height 1.78 m Weight 62.7 kg Body Mass Index 19.0 Comments: GEN-alert, oriented, no acute distress HEENT-NG tube in place, oropharynx is moist NECK-supple CV-regular rate and rhythm CHEST-clear to auscultation bilaterally ABD-soft with positive bowel sounds, mild abdominal distention, nontender -no Ramesh EXT-no edema NEURO-no focal deficits, voice is weak SKIN-warm and dry, positive abrasions over his spine, skin breakdown on the distal toes, heel protectors are on Results - Labs CBC & Chem 7: 12/27/17 03:59 12/27/17 03:59 Labs: P2 Y 12 is 225, is recommended to be over 237 for surgery Phosphorus is 2.7 Albumin is 2.7 Neutrophils are 58%, bands 0 Microbiology Results: Microbiology 12/23/17 16:29 Bronchial Washing Acid Fast Bacilli Culture & Smear - Preliminary 12/23/17 16:29 Bal, Right Lower Lobe Gram Stain - Final 12/23/17 16:29 Bal, Right Lower Lobe Bronchial Aspirate Culture - Final Streptococcus viridans group Coag negative Staphylococcus Anaerobic Gram-Negative Luis Fernando 12/23/17 16:29 Mini-Bal Fungal Culture and Stain - Preliminary - Impressions Chest x-ray is clear on my read and per radiology Assessment and Plan Assessment and Plan: Assessment Severe aspiration of all consistencies -recommend strict nothing by mouth Sepsis (SIRS: leukocytosis, tachypnea. Source: Lung)-resolved aspiration pneumonia?/pneumonitis-chest x-ray has been clear, white count is trending down Normocytic anemia CKD Stage 3 (Dr. Francis - baseline Cr 1.4) - Pt to avoid JYOTI, ARBs, NSAIDs and Bactrim Probable renal stenosis, b/l carotid stenosis HTN HLD Nonrheumatic aortic regurgitation Diffuse atherosclerosis w/ axillo-bifemoral bypass 2010 with R axillary artery stent placement 07/15 (Dr Valverde) - on Plavix Paroxysmal afib (Dr. Hwang) - previously on warfarin but DC'd d/t fall risk Basal cell CA R lower eyelid (Dr. Galvez/Shea) BPH w/ chronic urinary retention (previously saw Dr. Johnson) ? chronic leukemia (follows with Dr. 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 No pneumonia on chest x-ray. We'll discontinue Rocephin and metronidazole for aspiration. Continue doxycycline which she has been on chronically for suppression of MRSA infection in his back Change to feeds to Jevity 1.2 to run at 55 ML's per hour. We'll give 500 ML's free water in addition. Check CBC and renal panel tomorrow. Check P2 Y 12 tomorrow. If this is greater than 237, plan is for surgery tomorrow for PEG tube placement. Discussed with Dr. Cash, family and the patient. The patient still wants to proceed with PEG tube placement. Wound and skin nurses were consulted regarding small lesions on his toes, and abrasions on his back. Discussed with BUCK Lerner for Dr. Hurtado/pulmonology - Physician Narrative Narrative: Date: 12/27/17 Time: 2104 Hospital Course Summary Disclaimer: The visit summary below is not to be considered part of the above Progress Note. Hospital Course: 12/23/17 Admit, IP. Stay to exceed 2 overnights for bronch and tx of aspiration pneumonitis and given multiple comorbidities and age. Consult to Dr Hurtado - planning bronchoscopy this afternoon Duonebs, Flagyl, Rocephin (despite PCN allergy, pt has tolerated Omnicef) for aspiration PNA Discussed venous dopplers to further w-u DDimer with pt. Pt declines as his sxs started after choking on the pill. Low likelihood of PE. Dietitian consult re: borderline low BMI/anorexia. Speech consult re: possible aspiration. PT/OT for eval of functional abilities and for strengthening. SCD's for VTE ppx Protonix IV BID for GI ppx and aspiration Full Code Dr Benoit - PCP 12/24/2017 Plan Continue Rocephin and metronidazole for aspiration. White count is down slightly. I had a long talk with the patient and his son-in-law regarding his barium swallow. We discussed options and the patient states he is not ready for comfort care and would like to consider PEG tube placement in order to improve his nutrition, and have a safer way to obtain nutrition, fluids and to take his pills. He understands that there is still some risk for aspiration even with PEG tube placement. I did consult Dr. Cash to see the patient. He stated that if the patient did decide for PEG tube after his consultation, the procedure with likely not be performed until Wednesday at the earliest. NG tube was placed today and to feedings and free water initiated. We will advance to feeding as tolerated. Decrease or discontinue IV fluids tomorrow depending upon how he is tolerating tube feedings. Keep the head of the bed elevated at least 45 at all times to prevent aspiration. The nurse was notified to call if he should have worsening in his breathing or difficulties with tube feeds. Continue breathing treatments Continue PT OT. Family would like to consider inpatient rehabilitation at discharge. Will obtain an IRU screen. Check renal panel, CBC, magnesium in the morning. Plan 12/25/2017 Continue Rocephin and metronidazole for aspiration. No pneumonia or infiltrate seen on chest x-ray. White blood cell count is improving. Possibly decrease or de-escalate antibiotics tomorrow. Because of the patient's very poor swallow and high risk for continued aspiration, the patient was made strict nothing by mouth yesterday. The patient would like to consider PEG tube placement and Dr. Cash has been consulted. NG was placed yesterday and tube feeding was initiated. We'll start Reglan iv for possible ileus. Continue tube feeds at 30 ML's per hour and will hold off on increasing the rate at this time. Consider adding Dulcolax suppositories. Will discuss with Dr. Cash after he sees the patient and reviews his KUB, to make sure he agrees with continued tube feeding management. Continue to monitor residuals. Discontinue free water flushes. Continue IV fluids at 60 ML's per hour for now. Continue to have the head of the bed elevated at 45 at all times to prevent aspiration. Continue breathing treatments Renal panel, CBC, magnesium tomorrow. Recheck P2 Y 12 platelet function tomorrow IRU screen has been ordered Discussed with the patient's nurse, patient and family. Will discuss today with Dr. Cash. 12/26/2017 Plan Continue Rocephin and metronidazole for aspiration. Repeat chest x-ray tomorrow. Likely discontinue antibiotics if no infiltrates and white count not worsening. Tube feedings with two thirds TwoCal HN and one third water to run at 50 ML's per hour. Increase by 10 mL's every 6 hours as tolerated up to 65 ML's per hour as tolerated. Continue Reglan for now. Dulcolax suppositories as needed. Will discontinue scheduled Dulcolax. Decrease free water to 40 ML's per hour. Guaifenesin to help decrease the thickness of the phlegm in his throat. Wound and skin consult regarding skin breakdown on his toes and regarding heel pain and abrasions on his back Check CBC and basic metabolic profile tomorrow Recheck P2 Y 12 platelet function tomorrow Discussed with Dr. Cash, if testing shows platelets are no longer affected by Plavix and the patient is tolerating tube feedings, will likely undergo PEG tube placement in the next 1-2 days. Continue to elevate the head of the bed at 45 to prevent aspiration IRU screen in place Continue doxycycline for chronic MRSA infection Discussed with the patient, his nurse, and Dr. Cash. Will attempt to call patient's family to update them.
[2017-12-28] MEDS: METOCLOPRAMIDE 10mg/2ml INJECTION IVP SCH ×4 (03:12→22:19)
[2017-12-28] MEDS: ALBUTEROL/IPRATROPIUM 2.5mg-0.5mg/3ml NEB AEROSOL SCH ×4 (08:23→20:22)
[2017-12-28] MEDS: PANTOPRAZOLE 40 MG INJECTION IVP SCH ×2 (09:57→22:19)
[2017-12-28] MEDS: SALINE FLUSH 10ml SYRINGE IVF PRN ×2 (09:57→14:29)
[2017-12-28] MEDS ORDERED: BENZOCAINE 20% SPRAY 0.5 ML ONE (11:12)
[2017-12-28] MEDS ORDERED: BUPIVACAINE 0.25%/EPI 1:200,000 30ml SDV ONE (11:21)
[2017-12-28] MEDS: NS 1,000 ML IV SCH ×2 (11:40→16:42)
--- NOTE | 2017-12-28 11:44 | Anesthesia Preoperative Report ---
Anesthesia Preoperative Record - Date and Time Date: 12/28/17 Preoperative Diagnosis: aspiration pneumonitis NPO Since Date: 12/28/17 NPO Since Time: 01:00 Allergies/Adverse Reactions: Allergies Allergy/AdvReac Type Severity Reaction Status Date / Time Iodinated Contrast- Oral and Allergy Unknown RASH, Verified 12/23/17 12:10 IV Dye FLU-LIKE S/S Penicillins Allergy Unknown RASH,FLU-LIKE Verified 12/23/17 12:10 SYMPTOMS sulfamethoxazole AdvReac Intermediate Renal Verified 12/23/17 16:55 [From Bactrim] Insufficiency trimethoprim [From Bactrim] AdvReac Intermediate Renal Verified 12/23/17 16:55 Insufficiency clindamycin AdvReac Unknown DIARRHEA Verified 12/23/17 12:10 - Vital Signs Vital Signs: Temperature 98.3 F 12/28/17 07:31 Pulse Rate 97 12/28/17 07:31 Respiratory Rate 20 12/28/17 11:15 Blood Pressure 147/84 H 12/28/17 07:31 Pulse Oximetry 94 12/28/17 08:23 Height and Weight: Height 1.78 m Weight 61.1 kg Body Mass Index 19.0 - Medications Inpatient Medications: Current Medications Acetaminophen (Tylenol) 500 mg PO Q5H PRN PRN Reason: Discomfort Last Admin: 12/27/17 08:33 Dose: 500 mg Albuterol/Ipratropium (Duoneb) 3 ml AEROSOL RTQID [facility] Last Admin: 12/28/17 11:15 Dose: 3 ml Bisacodyl (Dulcolax) 10 mg RECTALLY TID PRN PRN Reason: Constipation Diphenhydramine HCl (Benadryl) 50 mg PO [facility] Last Admin: 12/27/17 20:34 Dose: 50 mg Doxycycline Monohydrate (Vibramycin Liquid) 100 mg NG BIDWM [facility] Last Admin: 12/27/17 16:43 Dose: 100 mg Duloxetine HCl (Cymbalta) 20 mg PO DAILY [facility] Last Admin: 12/27/17 08:32 Dose: 20 mg Dutasteride (Avodart) 0.5 mg PO [facility] Last Admin: 12/27/17 20:34 Dose: 0.5 mg Furosemide (Lasix 20 Mg Tab) 10 mg PO DAILY [facility] Last Admin: 12/27/17 08:32 Dose: 10 mg Guaifenesin (Robitussin Liq) 400 mg PO TID [facility] Last Admin: 12/27/17 21:01 Dose: 400 mg Metoclopramide HCl (Reglan) 5 mg IVP Q6HR [facility] Last Admin: 12/28/17 09:55 Dose: 5 mg Mirtazapine (Remeron) 15 mg PO [facility] Last Admin: 12/27/17 20:34 Dose: 15 mg Ondansetron HCl (Zofran) 4 mg IVP Q6H PRN PRN Reason: Nausea &/or vomiting Pantoprazole Sodium (Protonix Iv) 40 mg IVP BID [facility] Last Admin: 12/28/17 09:57 Dose: 40 mg Pravastatin Sodium (Pravachol) 80 mg PO [facility] Last Admin: 12/27/17 20:34 Dose: 80 mg Silodosin (Rapaflo) 8 mg PO [facility] Last Admin: 12/27/17 20:34 Dose: 8 mg Sodium Chloride (Iv Flush) 10 - 80 ml IVF PRN PRN PRN Reason: Flushing Last Admin: 12/28/17 09:57 Dose: 30 ml Sodium Chloride (Normal Saline) 500 ml IV PRN PRN Last Admin: 12/23/17 13:48 Dose: 500 ml Sotalol HCl (Betapace) 80 mg PO BID [facility] Last Admin: 12/27/17 20:34 Dose: 80 mg Home Medications: Home Medications Medication Instructions Recorded Confirmed Type diphenhydrAMINE HCl [Benadryl] 50 mg PO HS #0 01/21/13 12/23/17 History Mirtazapine [Remeron] 15 mg PO HS #0 08/07/13 12/23/17 History Cyanocobalamin (B-12) [Vit. B-12] 1,000 mcg INJ MONTHLY #0 08/22/15 12/23/17 History Ferrous Sulfate [Iron] 325 mg PO DAILY #0 08/22/15 12/23/17 History Lactose-Reduced Food [Boost High 1 bottle PO DAILY PRN #0 08/22/15 12/23/17 History Protein] Pravastatin Sodium 80 mg PO HS #0 08/22/15 12/23/17 History Clopidogrel Bisulfate [Clopidogrel] 75 mg PO DAILY 12/14/17 12/23/17 History Doxycycline [Vibramycin] 100 mg PO BID 12/14/17 12/23/17 History Duloxetine HCl 20 mg PO DAILY 12/14/17 12/23/17 History Dutasteride 0.5 mg PO HS 12/14/17 12/23/17 History Furosemide [Lasix 20 mg Tab] 10 mg PO DAILY 12/14/17 12/23/17 History Silodosin [Rapaflo] 8 mg PO HS 12/14/17 12/23/17 History Sotalol [Betapace] 80 mg PO BID 12/14/17 12/23/17 History Is Patient on Beta Toñito?: Yes - Medical History Respiratory: Reports: Other (SIRS, aspiration pneumonia) DENIES: Asthma Cardiovascular: Reports: Arrhythmia (A-FIB, ON PLAVIX) DENIES: Congestive Heart Failure (denies) Gastrointestional: Reports: Other (chronic aspiration) DENIES: Nausea or Vomiting Present, Gastroesophageal Reflux Disease Neuro/Musculoskeletal: Reports: Depression Renal/Endocrine: Reports: Other (CKD stage 3) Other History: Reports: Blood Transfusions, Other (BPH) - Surgical History GI Surgery/Treatments: Reports: Appendectomy, Cholecystectomy Musculoskeletal Surgery/Tx: Reports: Shoulder Arthroscopy (LEFT ROTATOR CUFF REPAIR) Anesthesia Reactions: None Hx Family Anesthesia Reaction: No History of Motion Sickness: No - Social History Smoking Status: Former smoker Hx Chewing Tobacco Use: No Second Hand Exposure: No Substance Use Type: does not use Alcohol Intake Frequency: does not drink - Pertinent Findings Laboratory: CBC and BMP 12/28/17 04:07 12/28/17 04:07 BMP 12/28/17 04:07 Sodium 142 Potassium 4.1 Chloride 104 Carbon Dioxide 27 BUN 15.0 Creatinine 0.9 Glucose 111 H Calcium 8.7 Liver Function 12/28/17 Range/Units 04:07 Albumin 3.3 L (3.5-5.0) g/dL EKG: Sinus Rhythm - Physical Exam Respiratory Exam: Present: bilateral breath sounds equal (slightly coarse, diminished ) Cardiovascular Exam: Present: regular rate and rhythm - Airway Assessment Mallampati Score: I TMD: 3 Fingerbreadths Neck Extension: good Overall Assessment: may be difficult mask vent - ASA ASA Score: 4 - Plan Anesthesia: General Inhalation Gases, MAC - Discussion Discussion: Discussed risks/options/alternatives of anesthesia and questions answered. Patient consents. Nursing pain assessment noted. Present for Discussion: family member (son in law) Attestation Statement: Prior to the delivery of any anesthetic medication, I examined the patient, developed the plan, obtained the patient's consent and discussed the risk and benefits of the procedure with the patient/guardian. Including risk of post op ventilation and sudden cardiac arrest. Jean Benz SAIL REPAIRER - Additional Information Seen by Anesthesia: Yes
[2017-12-28] MEDS ORDERED: LIDOCAINE 4% Laryng-O-Jet (160mg/4mL) KIT MM ONE ×2 (12:03→12:23)
[2017-12-28] MEDS ORDERED: LIDOCAINE 1% (10mg/ml) 10mL MDV ID ONE (12:05)
[2017-12-28] MEDS ORDERED: KETAMINE 500 MG/10 ML INJECTION ONE (12:16)
[2017-12-28] MEDS ORDERED: MIDAZOLAM 2mg/2ml INJECTION ONE (12:16)
[2017-12-28] MEDS ORDERED: LIDOCAINE 1% (10mg/ml) 30ml SDV INJ ID ONE (12:25)
[2017-12-28] MEDS: GUAIFENESIN 200mg/10ml ORAL LIQUID PO SCH ×3 (13:02→22:19)
[2017-12-28] MEDS: FUROSEMIDE 20 MG TABLET PO SCH ×2 (14:04→14:20)
[2017-12-28] MEDS: DULOXETINE 20 MG CAPSULE PO SCH ×2 (14:04→14:20)
[2017-12-28] MEDS: SOTALOL 80 MG TABLET PO SCH ×3 (14:04→22:20)
[2017-12-28] MEDS: DOXYCYCLINE 25 MG/5 ML NG SCH ×3 (14:05→18:03)
--- NOTE | 2017-12-28 14:07 | General Surgery Procedure Note ---
Date of Procedure: 12/28/17 Surgeon: Shreya Anesthesia: MAC ASA Score: 4 Postoperative Diagnosis: Chronic aspiration, gastritis with small ulcerations Procedure: EGD with biopsies, PEG tube placement
--- NOTE | 2017-12-28 14:39 | Consultation ---
DATE OF CONSULTATION 12/24/2017 CONSULTING PHYSICIAN Gurjit Cash MD REQUESTING PHYSICIAN Dr. Yissel Olson REASON FOR CONSULTATION Consult to discuss PEG tube. IMPRESSION 1. Aspiration pneumonia/pneumonitis. 2. Severe aspiration with oral intake. 3. Sepsis. 4. Chronic kidney disease - stage III. 5. Peripheral arterial disease. 6. Paroxysmal atrial fibrillation - no current anticoagulation. 7. Daily use of Plavix - currently held. RECOMMENDATIONS 1. Alexx is in a difficult situation given his overall frailty. I do think it is reasonable to consider proceeding with a PEG tube for nutrition but I had a lengthy discussion with the family regarding expected outcomes. I explained that PEG tube would eliminate his need to swallow oral medications and nutrition and hydration but that he would still have the potential for aspiration with saliva and could still have an aspiration pneumonia that would lead to his demise. 2. The patient and family are still considering aggressive management versus transition to palliative care. The patient currently desires more aggressive medical management which would need enteral access for nutrition and hydration. 3. He will need to be off of his Plavix for a week and be sure that he has adequate platelet function before proceeding with the procedure. 4. I recommend placement of an NG tube and initiation of tube feeds into the stomach to see if he will tolerate this. If he does not tolerate tube feeding via an NG tube, then he will not tolerate it via a PEG tube. HISTORY OF PRESENT ILLNESS Alexx is an 87-year-old male patient of Dr. Benoit who was hospitalized yesterday for aspiration pneumonia/pneumonitis. He had a modified barium swallow today that showed sherrie aspiration with all consistencies including pudding. Dr. Olson had discussed the barium swallow results with the patient and his son-in-law. This led to a surgical consultation to consider a PEG tube. Alexx has had trouble swallowing with the first indication a couple of years ago. His symptoms were minor. On the day of admission he had swallowed one pill and the pill had gotten stuck. His symptoms have worsened significantly since that event. He has lost 50 pounds over the last year and has gone from 180 pounds to 130 pounds. He was admitted for the aspiration pneumonia/ pneumonitis and had bronchoscopy by Dr. Hurtado that showed evidence of chronic aspiration. He denies any acid reflux or heartburn. He has mild abdominal pain with palpation. Earlier with initiation of free water boluses he felt like he may have some vomiting after receiving only 100 mL of a bolus. Dietary recommendations recommended a total volume of 1.5 liters per day. He has had a raspy voice since his pill had gotten stuck yesterday. PAST MEDICAL HISTORY Reviewed - see EMR. PAST SURGICAL HISTORY Reviewed - see EMR. He also reported bilateral cataract extractions. FAMILY HISTORY Reviewed - see EMR. SOCIAL HISTORY Reviewed - see the EMR. MEDICATIONS Reviewed - see EMR. He is on Plavix. ALLERGIES Multiple - see EMR. REVIEW OF SYSTEMS 10-point review of systems was negative except for History of Present Illness and the following. RESPIRATORY: He has had a cough lately as well as a raspy voice. CARDIOVASCULAR: He does have a history of atrial fibrillation without anticoagulation. HEMATOLOGIC: He is on Plavix due to his axillofemoral bypass. GASTROINTESTINAL: He reports some nausea after his free water bolus. Constipation with a bowel movement approximately every five days for the last several years. PSYCHIATRIC: He reports depression and anxiety. NEUROLOGIC: He reports some altered sensation of his legs and feet. LABORATORY DATA White blood cell count 26.3, platelet count 174. PHYSICAL EXAMINATION VITAL SIGNS: Temperature 98.8, pulse 84, blood pressure 135/83, respiratory rate 16, oxygen saturation 97% on room air. GENERAL: The patient is awake and alert. He is ill-appearing and frail. NECK: Thin, with a midline trachea. No lymphadenopathy or thyromegaly are noted. HEART: Regular rate and rhythm. LUNGS: Coarse breath sounds bilaterally. ABDOMEN: Soft, nontender, nondistended, no masses noted. He has an upper midline incision that is well-healed. EXTREMITIES: No clubbing, cyanosis or edema. NEURO: Cranial nerves II-XII are grossly intact. PSYCHIATRIC: Normal mood and affect. He does appear to have good judgment and insight. PATIENT EDUCATION The situation with regards to his aspiration, and need for enteral nutrition and hydration and the potential for PEG tube placement was discussed with the patient, his son-in-law, and a daughter who was present. The discussion was rather lengthy to answer the patient's questions about the hypothetical options. I did lay out the two options of ongoing aggressive medical management pursuing a PEG tube for nutrition versus palliative care and hospice. I did explain that aggressive medical management would need a trial of tube feeding to be sure that he could tolerate this. I also explained that it would not eliminate all of his swallowing since he would still need to control his secretions. We discussed that on hospice he would have options of choosing to take no oral intake versus oral intake while seeing how he tolerated this. I did discuss the details of PEG tube placement and explained the risks of inadvertent injury to intraabdominal contents, bleeding, tube dislodgement requiring exploratory laparotomy and repair, and complications of anesthesia. After laying out all of the options, the patient did want to proceed with trial of tube feeding in anticipation of PEG tube placement. A total of 65 minutes of [id number] time was spent with the patient from 3:15 p.m. to 4:20 p.m. Well over 50% of the time was spent for counseling and coordination of care to discuss the management options of this difficult situation. LAURA
--- NOTE | 2017-12-28 14:58 | Anesthesia Postoperative Note ---
- Date and Time Date: 12/28/17 Time: 13:55 - Status Patient Participated in Evaluation: Patient Participated in Person Vital Signs: Temperature 97.3 F 12/28/17 14:24 Pulse Rate 91 12/28/17 14:24 Respiratory Rate 12 12/28/17 14:24 Blood Pressure 167/77 H 12/28/17 14:24 Pulse Oximetry 96 12/28/17 14:24 Respiratory Function: Airway Patent, Regular Respirations Cardiovascular Function: Regular Pulse Mental Status: Alert and Oriented Pain Intensity: 0 Hydration: IV Infusing Complications During Recover: None Apparent - Follow-Up Instructions Instructions: Per Surgeon
--- NOTE | 2017-12-28 15:26 | Progress Note ---
- Date 12/28/17 Subjective: The patient was seen this afternoon in his room accompanied by his daughter. He underwent PEG tube placement earlier today and did well. He can likely start tube feeds tomorrow. He can have medicines per PEG today per Dr. Cash. The patient complains of some continued secretions in his throat. He states last night was terrible and he thought he was going to . His suction was not working. He felt like he could not breathe. Fortunately, he's feeling better now. He states his pain in his abdomen is a 2 on a scale of 1-10. The patient states that his right ear where he has a sore was bumped last night and cause some bleeding. He has a pressure dressing on. Objective Vital signs: Temperature 97.2 F 12/28/17 15:14 Pulse Rate 87 12/28/17 15:14 Respiratory Rate 16 12/28/17 15:14 Blood Pressure 172/82 H 12/28/17 15:14 Pulse Oximetry 97 12/28/17 15:14 Height/Weight/BMI: Height 1.78 m Weight 61.1 kg Body Mass Index 19.0 Comments: Afebrile, heart rate 91, blood pressure 167/77, O2 sat 96% on room air GEN-alert, oriented, no acute distress HEENT-he has a pressure dressing on his right ear NECK-supple CV-regular rate and rhythm CHEST-clear to auscultation anteriorly. His voice sounds phlegmy ABD-soft, nontender with positive bowel sounds - EXT-no edema, heel protectors are on, SCDs are on NEURO-no focal deficits, voice continues to be weak SKIN-warm and dry, multiple skin lesions with history of skin cancer, wound and skin is following regarding skin breakdown on his toes Results - Labs CBC & Chem 7: 12/28/17 04:07 12/28/17 04:07 Microbiology Results: Microbiology 12/23/17 16:29 Bronchial Washing Acid Fast Bacilli Culture & Smear - Preliminary 12/23/17 16:29 Bal, Right Lower Lobe Gram Stain - Final 12/23/17 16:29 Bal, Right Lower Lobe Bronchial Aspirate Culture - Final Streptococcus viridans group Coag negative Staphylococcus Anaerobic Gram-Negative Luis Fernando 12/23/17 16:29 Mini-Bal Fungal Culture and Stain - Preliminary Assessment and Plan Assessment and Plan: Assessment Severe aspiration of all consistencies -recommend strict nothing by mouth Sepsis (SIRS: leukocytosis, tachypnea. Source: Lung)-resolved aspiration pneumonia?/pneumonitis-chest x-ray has been clear-Rocephin and metronidazole discontinued 12/27/2017 PEG tube placed by Dr. Belcher on 12/28/2017 Normocytic anemia CKD Stage 3 (Dr. Francis - baseline Cr 1.4) - Pt to avoid JYOTI, ARBs, NSAIDs and Bactrim Probable renal stenosis, b/l carotid stenosis HTN HLD Nonrheumatic aortic regurgitation Diffuse atherosclerosis w/ axillo-bifemoral bypass 2010 with R axillary artery stent placement 07/15 (Dr Valverde) - on Plavix Paroxysmal afib (Dr. Hwang) - previously on warfarin but DC'd d/t fall risk Basal cell CA R lower eyelid (Dr. Galvez/Shea) BPH w/ chronic urinary retention (previously saw Dr. Johnson) ? chronic leukemia (follows with Dr. 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 Per Dr. Cash, the patient can have his oral meds per PEG today. He will likely start tube feeding tomorrow. The patient can restart his Plavix on 12/30/2017. Continue doxycycline which she is on chronically for suppression of MRSA infection in his back. The patient may have NT suctioning by RT when necessary. Continue guaifenesin for thickened secretions Continue to have wound and skin nurses following his skin lesions on his feet and back CBC and renal panel tomorrow. Discussed today with Dr. Cash. Discussed care plan with the patient, his daughter, and his nurse. DVT Prophylaxis: SCD's GI Prophylaxis: Protonix - Physician Narrative Narrative: Date: 12/28/17 Time: 1522 Hospital Course Summary Disclaimer: The visit summary below is not to be considered part of the above Progress Note. Hospital Course: 12/23/17 Admit, IP. Stay to exceed 2 overnights for bronch and tx of aspiration pneumonitis and given multiple comorbidities and age. Consult to Dr Hurtado - planning bronchoscopy this afternoon Duonebs, Flagyl, Rocephin (despite PCN allergy, pt has tolerated Omnicef) for aspiration PNA Discussed venous dopplers to further w-u DDimer with pt. Pt declines as his sxs started after choking on the pill. Low likelihood of PE. Dietitian consult re: borderline low BMI/anorexia. Speech consult re: possible aspiration. PT/OT for eval of functional abilities and for strengthening. SCD's for VTE ppx Protonix IV BID for GI ppx and aspiration Full Code Dr Benoit - PCP 12/24/2017 Plan Continue Rocephin and metronidazole for aspiration. White count is down slightly. I had a long talk with the patient and his son-in-law regarding his barium swallow. We discussed options and the patient states he is not ready for comfort care and would like to consider PEG tube placement in order to improve his nutrition, and have a safer way to obtain nutrition, fluids and to take his pills. He understands that there is still some risk for aspiration even with PEG tube placement. I did consult Dr. Cash to see the patient. He stated that if the patient did decide for PEG tube after his consultation, the procedure with likely not be performed until Wednesday at the earliest. NG tube was placed today and to feedings and free water initiated. We will advance to feeding as tolerated. Decrease or discontinue IV fluids tomorrow depending upon how he is tolerating tube feedings. Keep the head of the bed elevated at least 45 at all times to prevent aspiration. The nurse was notified to call if he should have worsening in his breathing or difficulties with tube feeds. Continue breathing treatments Continue PT OT. Family would like to consider inpatient rehabilitation at discharge. Will obtain an IRU screen. Check renal panel, CBC, magnesium in the morning. Plan 12/25/2017 Continue Rocephin and metronidazole for aspiration. No pneumonia or infiltrate seen on chest x-ray. White blood cell count is improving. Possibly decrease or de-escalate antibiotics tomorrow. Because of the patient's very poor swallow and high risk for continued aspiration, the patient was made strict nothing by mouth yesterday. The patient would like to consider PEG tube placement and Dr. Cash has been consulted. NG was placed yesterday and tube feeding was initiated. We'll start Reglan iv for possible ileus. Continue tube feeds at 30 ML's per hour and will hold off on increasing the rate at this time. Consider adding Dulcolax suppositories. Will discuss with Dr. Cash after he sees the patient and reviews his KUB, to make sure he agrees with continued tube feeding management. Continue to monitor residuals. Discontinue free water flushes. Continue IV fluids at 60 ML's per hour for now. Continue to have the head of the bed elevated at 45 at all times to prevent aspiration. Continue breathing treatments Renal panel, CBC, magnesium tomorrow. Recheck P2 Y 12 platelet function tomorrow IRU screen has been ordered Discussed with the patient's nurse, patient and family. Will discuss today with Dr. Cash. 12/26/2017 Plan Continue Rocephin and metronidazole for aspiration. Repeat chest x-ray tomorrow. Likely discontinue antibiotics if no infiltrates and white count not worsening. Tube feedings with two thirds TwoCal HN and one third water to run at 50 ML's per hour. Increase by 10 mL's every 6 hours as tolerated up to 65 ML's per hour as tolerated. Continue Reglan for now. Dulcolax suppositories as needed. Will discontinue scheduled Dulcolax. Decrease free water to 40 ML's per hour. Guaifenesin to help decrease the thickness of the phlegm in his throat. Wound and skin consult regarding skin breakdown on his toes and regarding heel pain and abrasions on his back Check CBC and basic metabolic profile tomorrow Recheck P2 Y 12 platelet function tomorrow Discussed with Dr. Cash, if testing shows platelets are no longer affected by Plavix and the patient is tolerating tube feedings, will likely undergo PEG tube placement in the next 1-2 days. Continue to elevate the head of the bed at 45 to prevent aspiration IRU screen in place Continue doxycycline for chronic MRSA infection Discussed with the patient, his nurse, and Dr. Cash. Will attempt to call patient's family to update them. 12/27/2017 Plan White count is normalized. No pneumonia on chest x-ray. We'll discontinue Rocephin and metronidazole for aspiration. Continue doxycycline which she has been on chronically for suppression of MRSA infection in his back Change to feeds to Jevity 1.2 to run at 55 ML's per hour. We'll give 500 ML's free water in addition. Check CBC and renal panel tomorrow. Check P2 Y 12 tomorrow. If this is greater than 237, plan is for surgery tomorrow for PEG tube placement. Discussed with Dr. Cash, family and the patient. The patient still wants to proceed with PEG tube placement. Wound and skin nurses were consulted regarding small lesions on his toes, and abrasions on his back. Discussed with BUCK Lerner for Dr. Hurtado/pulmonology
--- NOTE | 2017-12-28 16:28 | Progress Note ---
DATE OF VISIT 12/26/2017 REASON FOR VISIT Follow progress with tube feeding. SUBJECTIVE Alexx has been increased to a current rate of 40 mL/hour. He was just increased to 50 mL/hour as a continuous infusion. He has been tolerating this without any additional feelings of fullness in the upper abdomen or nausea. OBJECTIVE VITAL SIGNS: Afebrile with stable vitals on room air. GENERAL: The patient is awake and alert. He is sitting up in bed in no acute distress. ABDOMEN: Soft, nontender, nondistended. IMPRESSION 1. Chronic aspiration. 2. Aspiration pneumonia/pneumonitis. 3. Daily use of Plavix. PLAN 1. Continue to advance tube feeding to a goal of 65 mL/hour. This would give him full nutrition and hydration. 2. Recheck Plavix assay tomorrow to see if he would be an operative candidate. [facility]
[2017-12-28] MEDS: MIRTAZAPINE 15 MG TABLET PO SCH (22:19)
[2017-12-28] MEDS: DUTASTERIDE 0.5 MG CAPSULE PO SCH (22:19)
[2017-12-28] MEDS: PRAVASTATIN 40 MG TABLET PO SCH (22:20)
[2017-12-28] MEDS: DiphenhydrAMINE 25 MG CAPSULE PO SCH (22:21)
[2017-12-29] MEDS: METOCLOPRAMIDE 10mg/2ml INJECTION IVP SCH ×4 (02:34→20:04)
[2017-12-29] MEDS: NS 1,000 ML IV SCH ×2 (06:09→20:00)
[2017-12-29] MEDS: ALBUTEROL/IPRATROPIUM 2.5mg-0.5mg/3ml NEB AEROSOL SCH ×4 (07:21→20:56)
[2017-12-29] MEDS: GUAIFENESIN 200mg/10ml ORAL LIQUID PO SCH ×3 (09:15→20:03)
[2017-12-29] MEDS: SOTALOL 80 MG TABLET PO SCH ×2 (09:15→20:11)
[2017-12-29] MEDS: DULOXETINE 20 MG CAPSULE PO SCH (09:16)
[2017-12-29] MEDS: FUROSEMIDE 20 MG TABLET PO SCH (09:16)
[2017-12-29] MEDS: DOXYCYCLINE 25 MG/5 ML NG SCH ×2 (09:17→17:16)
[2017-12-29] MEDS: PANTOPRAZOLE 40 MG INJECTION IVP SCH ×2 (09:17→20:03)
--- NOTE | 2017-12-29 13:46 | Progress Note ---
- Date 12/29/17 Subjective: Patient is seen this afternoon sitting in bed. He states he feels the best he has since he has been here. Had PEG tube placed yesterday and is receiving feeding and meds through the tube . Feels he is doing well with this. Has a loose, non productive cough. Not requiring O2. Does not c/o SOA, n/v, f/c. Objective Vital signs: Temperature 96.9 F 12/29/17 12:00 Pulse Rate 91 12/29/17 12:00 Respiratory Rate 12/29/17 12:00 Blood Pressure 149/72 H 12/29/17 12:00 Pulse Oximetry 98 12/29/17 12:00 Height/Weight/BMI: Height 1.78 m Weight 62.1 kg Body Mass Index 19.0 - Constitutional Present: no acute distress, well nourished, thin - Routine HEENT Exam Head: Present: normocephalic, atraumatic - Routine Respiratory Exam Present: CTA bilaterally. Absent: wheezes - Routine Cardiovascular Exam Present: RRR, no murmur - Routine Abdominal Exam Present: soft, tenderness (mild tenderness around PEG site. Binder and dressings in place.), non distended - Routine Extremities Exam Present: no edema, normal capillary refill - Routine Skin Exam Present: dry, warm - Routine Neurological Exam Present: alert. Absent: normal speech (speech is a hoarse whisper) - Routine Lymphatic Exam Lymphatic: Absent: adenopathy - Routine Psychiatric Exam Present: normal affect, cooperative Results - Labs CBC & Chem 7: 12/29/17 04:36 12/29/17 04:36 Microbiology Results: Microbiology 12/28/17 12:30 Gastric Biopsy Helicobacter pylori Rapid Urease - Final 12/23/17 16:29 Bronchial Washing Acid Fast Bacilli Culture & Smear - Preliminary 12/23/17 16:29 Bal, Right Lower Lobe Gram Stain - Final 12/23/17 16:29 Bal, Right Lower Lobe Bronchial Aspirate Culture - Final Streptococcus viridans group Coag negative Staphylococcus Anaerobic Gram-Negative Luis Fernando 12/23/17 16:29 Mini-Bal Fungal Culture and Stain - Preliminary Assessment and Plan Assessment and Plan: Assessment Severe aspiration of all consistencies -recommend strict nothing by mouth Sepsis (SIRS: leukocytosis, tachypnea. Source: Lung)-resolved aspiration pneumonia?/pneumonitis-chest x-ray has been clear-Rocephin and metronidazole discontinued 12/27/2017 PEG tube placed by Dr. Belcher on 12/28/2017 Normocytic anemia CKD Stage 3 (Dr. Francis - baseline Cr 1.4) - Pt to avoid JYOTI, ARBs, NSAIDs and Bactrim Probable renal stenosis, b/l carotid stenosis HTN HLD Nonrheumatic aortic regurgitation Diffuse atherosclerosis w/ axillo-bifemoral bypass 2010 with R axillary artery stent placement 07/15 (Dr Valverde) - on Plavix Paroxysmal afib (Dr. Hwang) - previously on warfarin but DC'd d/t fall risk Basal cell CA R lower eyelid (Dr. Galvez/Shea) BPH w/ chronic urinary retention (previously saw Dr. Johnson) ? chronic leukemia (follows with Dr. 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 pylori urease negative Plan The patient underwent PEG tube placement yesterday and is doing well with tube feedings. The patient can restart his Plavix on 12/30/2017. Cont doxycycline which he is on chronically for suppression of MRSA infection in his back. He had 4 days of ceftriaxone and Flagyl for possible aspiration PNA. The patient may have NT suctioning by RT when necessary. Continue guaifenesin for thickened secretions Continue to have wound and skin nurses follow his skin lesions on his feet and back Plan to dismiss to PRA at [facility] in the next few days. DVT Prophylaxis: SCD's GI Prophylaxis: Protonix Resuscitation Status: Do Not Resuscitate - Physician Narrative Physician: Mary Givens MD Narrative: Date: 12/29/17 Time: 1740 I have independently evaluated and examined this patient. I reviewed the chart, the patient's history, and the LAB SYSTEMS ANALYST/PA's documented findings as above. We discussed and formulated the assessment and plan as above with additions as below: Mr. Stanford reported that he is having a fairly good day other than since that he can't clear secretions when he coughs and minor abdominal discomfort with cough. NAD, alert, raspy voice Abdominal binder on; abdomen soft with minimal generalized tenderness to palpation Tube feedings initiated with Jevity 1.2 at 30 mL per hour; increased to 55 mL/h later today with plans to increase slowly to goal of 70 per nutrition note. Resume Plavix tomorrow; continue IV pantoprazole-endoscopic findings of gastritis noted. Pathology pending. Chest x-ray 12/27 reviewed by myself-NAD; discussed with Dr. Reynolds. Discussed with nursing. Hospital Course Summary Disclaimer: The visit summary below is not to be considered part of the above Progress Note. Hospital Course: 12/23/17 Admit, IP. Stay to exceed 2 overnights for bronch and tx of aspiration pneumonitis and given multiple comorbidities and age. Consult to Dr Hurtado - planning bronchoscopy this afternoon Emilee Corona, Rocephin (despite PCN allergy, pt has tolerated Omnicef) for aspiration PNA Discussed venous dopplers to further w-u DDimer with pt. Pt declines as his sxs started after choking on the pill. Low likelihood of PE. Dietitian consult re: borderline low BMI/anorexia. Speech consult re: possible aspiration. PT/OT for eval of functional abilities and for strengthening. SCD's for VTE ppx Protonix IV BID for GI ppx and aspiration Full Code Dr Benoti - PCP 12/24/2017 Continue Rocephin and metronidazole for aspiration. White count is down slightly. I had a long talk with the patient and his son-in-law regarding his barium swallow. We discussed options and the patient states he is not ready for comfort care and would like to consider PEG tube placement in order to improve his nutrition, and have a safer way to obtain nutrition, fluids and to take his pills. He understands that there is still some risk for aspiration even with PEG tube placement. I did consult Dr. Cash to see the patient. He stated that if the patient did decide for PEG tube after his consultation, the procedure with likely not be performed until Wednesday at the earliest. NG tube was placed today and to feedings and free water initiated. We will advance to feeding as tolerated. Decrease or discontinue IV fluids tomorrow depending upon how he is tolerating tube feedings. Keep the head of the bed elevated at least 45 at all times to prevent aspiration. The nurse was notified to call if he should have worsening in his breathing or difficulties with tube feeds. Continue breathing treatments Continue PT OT. Family would like to consider inpatient rehabilitation at discharge. Will obtain an IRU screen. Check renal panel, CBC, magnesium in the morning. 12/25/2017 Continue Rocephin and metronidazole for aspiration. No pneumonia or infiltrate seen on chest x-ray. White blood cell count is improving. Possibly decrease or de-escalate antibiotics tomorrow. Because of the patient's very poor swallow and high risk for continued aspiration, the patient was made strict nothing by mouth yesterday. The patient would like to consider PEG tube placement and Dr. Cash has been consulted. NG was placed yesterday and tube feeding was initiated. We'll start Reglan iv for possible ileus. Continue tube feeds at 30 ML's per hour and will hold off on increasing the rate at this time. Consider adding Dulcolax suppositories. Will discuss with Dr. Cash after he sees the patient and reviews his KUB, to make sure he agrees with continued tube feeding management. Continue to monitor residuals. Discontinue free water flushes. Continue IV fluids at 60 ML's per hour for now. Continue to have the head of the bed elevated at 45 at all times to prevent aspiration. Continue breathing treatments Renal panel, CBC, magnesium tomorrow. Recheck P2 Y 12 platelet function tomorrow IRU screen has been ordered Discussed with the patient's nurse, patient and family. Will discuss today with Dr. Cash. 12/26/2017 Continue Rocephin and metronidazole for aspiration. Repeat chest x-ray tomorrow. Likely discontinue antibiotics if no infiltrates and white count not worsening. Tube feedings with two thirds TwoCal HN and one third water to run at 50 ML's per hour. Increase by 10 mL's every 6 hours as tolerated up to 65 ML's per hour as tolerated. Continue Reglan for now. Dulcolax suppositories as needed. Will discontinue scheduled Dulcolax. Decrease free water to 40 ML's per hour. Guaifenesin to help decrease the thickness of the phlegm in his throat. Wound and skin consult regarding skin breakdown on his toes and regarding heel pain and abrasions on his back Check CBC and basic metabolic profile tomorrow Recheck P2 Y 12 platelet function tomorrow Discussed with Dr. Cash, if testing shows platelets are no longer affected by Plavix and the patient is tolerating tube feedings, will likely undergo PEG tube placement in the next 1-2 days. Continue to elevate the head of the bed at 45 to prevent aspiration IRU screen in place Continue doxycycline for chronic MRSA infection Discussed with the patient, his nurse, and Dr. Cash. Will attempt to call patient's family to update them. 12/27/2017 White count is normalized. No pneumonia on chest x-ray. We'll discontinue Rocephin and metronidazole for aspiration. Change to feeds to Jevity 1.2 to run at 55 ML's per hour. We'll give 500 ML's free water in addition. Check P2 Y 12 tomorrow. If this is greater than 237, plan is for surgery tomorrow for PEG tube placement. Discussed with Dr. Cash, family and the patient. The patient still wants to proceed with PEG tube placement. Wound and skin nurses were consulted regarding small lesions on his toes, and abrasions on his back. 12/28/17 The patient underwent PEG tube placement this morning and did well. Per Dr. Cash, the patient can have his oral meds per PEG today. He will likely start tube feeding tomorrow. The patient can restart his Plavix on 12/30/2017. The patient may have NT suctioning by RT when necessary. Continue guaifenesin for thickened secretions 12/29/17 The patient underwent PEG tube placement yesterday and is doing well with tube feedings. The patient can restart his Plavix on 12/30/2017. Continue IV pantoprazole-endoscopic findings of gastritis with small antral ulcers noted. Pathology pending. Cont doxycycline which he is on chronically for suppression of MRSA infection in his back. He had 4 days of ceftriaxone and Flagyl for possible aspiration PNA. Plan to dismiss to PRA at [facility] in the next few days.
--- NOTE | 2017-12-29 14:25 | Progress Note ---
DATE OF SERVICE 12/29/2017 FINDINGS Mr. Stanford was seen this afternoon on rounds. He states that his abdomen does hurt slightly when he "coughs." Otherwise, the patient denies abdominal pain. PHYSICAL EXAM VITAL SIGNS: Afebrile, normotensive. Please refer to EMR. ABDOMEN: Attention was focused to his abdomen. Palpation of the abdomen reveals it to be soft and nontender. G-tube is present within the left upper quadrant. No significant surrounding erythema. ASSESSMENT 87-year-old gentleman status post insertion of percutaneous endoscopic gastrostomy tube secondary to aspiration pneumonia. Patient doing well from a surgical standpoint. PLAN Continue current care. Will continue to see patient intermittently in regards to his G-tube. Will defer ongoing enteral feeds and medical management to the hospitalist system. Please contact if further assistance is needed. LAURA
--- NOTE | 2017-12-29 14:57 | Progress Note ---
DATE OF VISIT 12/27/2017 REASON FOR VISIT Follow tolerance of tube feeding. SUBJECTIVE Alexx is now at his goal tube feeding rate and has tolerated his free water boluses without symptoms. His platelet function level was slightly low at 225. He denies any abdominal pain. OBJECTIVE VITAL SIGNS: Afebrile with stable vitals on room air. GENERAL: The patient is awake and alert, in no acute distress. ABDOMEN: Soft, nontender, nondistended. LABORATORY DATA See Subjective. ASSESSMENT 1. Chronic aspiration. 2. Need for enteral access with a PEG tube. He is tolerating goal tube feeds. 3. Daily use of Plavix with platelet function assay still lower than recommended levels for a surgical procedure. PLAN 1. I think he will be ready for the operating room tomorrow as long as he continues to tolerate his tube feeds throughout the day. 2. Hold tube feeds at 4 a.m. tomorrow morning and return his NG-tube to low intermittent wall suction. [facility]
--- NOTE | 2017-12-29 17:19 | Operative Note ---
DATE OF OPERATION 12/28/2017 SURGEON Gurjit Cash MD PREOPERATIVE DIAGNOSES 1. Chronic aspiration. 2. Daily use of Plavix - currently on hold. 3. Need for enteral access given the chronic aspiration. POSTOPERATIVE DIAGNOSES 1. Chronic aspiration. 2. Gastritis of the antrum with small ulcerations. 3. Daily use of Plavix - currently on hold. PROCEDURE 1. Esophagogastroduodenoscopy with antral biopsies for FLACO testing and histology. 2. Percutaneous endoscopic gastrostomy tube placement. ANESTHESIA MAC ASA Class 4 INDICATIONS The patient is an 87-year-old male who had been admitted to the hospital for possible aspiration pneumonia/pneumonitis. He had a modified barium swallow had been performed and he has failed oral intake with all consistencies. Given his significant chronic aspiration, a feeding tube had been discussed with him and he elected to proceed with PEG tube placement. FINDINGS The antrum showed irritation with some small areas of ulceration. The esophagus was normal to inspection as was the duodenum. The top of the bolster was at the 5-cm meghan and the 4-cm meghan was at the skin surface. DESCRIPTION OF PROCEDURE After informed consent was obtained the patient was taken to the operating room and placed in the supine position. IV sedation was administered by the anesthesia team. A bite block was inserted followed by an Olympus video gastroscope. The gastroscope was advanced down to the second portion of the duodenum under direct vision. The scope was withdrawn to the stomach and the irritation of the antrum was noted. A biopsy was taken for FLACO testing. Additional biopsies were taken for histology. External abdominal wall pressure was then placed with a finger to try to discover an appropriate pathway for PEG tube placement. The skin was then prepped using ChloraPrep and was draped in usual sterile fashion. Local was injected at the planned PEG tube insertion site. The needle was advanced and no aspiration of air was possible until the needle had entered the lumen of the stomach. The tract of the PEG tube was anesthetized with local. A small transverse skin incision was made with an 11- blade scalpel. A larger needle and stylet were passed into the gastric lumen and the stylet was removed. The guidewire was threaded through the needle and was grasped with a polypectomy snare through the endoscope. The endoscope was then removed, dragging the guidewire up and out of the mouth. The new PEG tube was then threaded over the guidewire. Traction was pulled at the level of the guidewire in the anterior abdominal wall. The PEG tube was passed through the abdominal wall. The gastroscope was reinserted to examine proper positioning of the PEG tube. The skin edge was at 4 cm and the top of the bolster was at 5 cm. The bolster was tightened with an 0-silk tie. Bacitracin ointment was placed around the skin exit site of the tube. Caps were applied to the end of the tubing after it was trimmed to length. An overlying gauze dressing was placed. RECOMMENDATIONS 1. The PEG tube may be used for oral medications immediately and tube feeds can be restarted tomorrow morning. 2. Await pathology results to determine the necessary management for his gastritis. LAURA
[2017-12-29] MEDS: DiphenhydrAMINE 25 MG CAPSULE PO SCH (20:09)
[2017-12-29] MEDS: DUTASTERIDE 0.5 MG CAPSULE PO SCH (20:10)
[2017-12-29] MEDS: PRAVASTATIN 40 MG TABLET PO SCH (20:11)
[2017-12-29] MEDS: MIRTAZAPINE 15 MG TABLET PO SCH (20:12)
[2017-12-30] MEDS: METOCLOPRAMIDE 10mg/2ml INJECTION IVP SCH ×4 (03:43→21:08)
[2017-12-30] MEDS: NS 1,000 ML IV SCH ×2 (04:01→10:34)
[2017-12-30] MEDS: ALBUTEROL/IPRATROPIUM 2.5mg-0.5mg/3ml NEB AEROSOL SCH ×4 (07:44→19:26)
[2017-12-30] MEDS: SALINE FLUSH 10ml SYRINGE IVF PRN ×3 (09:19→21:09)
[2017-12-30] MEDS: DOXYCYCLINE 25 MG/5 ML NG SCH (09:19)
[2017-12-30] MEDS: GUAIFENESIN 200mg/10ml ORAL LIQUID PO SCH (09:19)
[2017-12-30] MEDS: FUROSEMIDE 20 MG TABLET PO SCH (09:20)
[2017-12-30] MEDS: PANTOPRAZOLE 40 MG INJECTION IVP SCH ×2 (09:20→21:07)
[2017-12-30] MEDS: SOTALOL 80 MG TABLET PO SCH (09:20)
[2017-12-30] MEDS ORDERED: ACETAMINOPHEN 650 MG/20.3 ML SOLUTION PEG PRN (10:30)
--- NOTE | 2017-12-30 10:42 | Pulmonology Progress Note ---
Subjective Principal diagnosis: Aspiration pna Interval history: Doing much better. Had PEG placed and doing well with that. Working with PT. He did have speech evaluation with the diagnosis of dysphagia, but states he has not had any followup therapy He is strict NPO at the moment Exam Vital signs: Temperature 97.1 F 12/30/17 08:00 Pulse Rate 83 12/30/17 09:20 Respiratory Rate 18 12/30/17 08:00 Blood Pressure 144/80 H 12/30/17 08:00 Pulse Oximetry 99 12/30/17 08:00 Inpatient Medications: Generic Name Dose Route Start Last Admin Trade Name Freq PRN Reason Stop Dose Admin Acetaminophen 500 mg 12/30/17 10:30 Tylenol 650 Mg/20.3 Ml Soln PEG Q5H PRN DISCOMFORT Albuterol/Ipratropium 3 ml 12/23/17 19:00 12/30/17 07:44 Duoneb AEROSOL 3 ml RTQID DIANE Administration Bisacodyl 10 mg 12/26/17 18:34 Dulcolax RECTALLY TID PRN Constipation Diphenhydramine HCl 50 mg 12/30/17 21:00 Benadryl Liquid PEG HS DIANE Doxycycline Monohydrate 100 mg 12/30/17 17:30 Vibramycin Liquid PEG BIDWM DIANE Duloxetine HCl 20 mg 12/31/17 09:00 Cymbalta PEG DAILY DIANE Dutasteride 0.5 mg 12/23/17 21:00 12/29/17 20:10 Avodart PO 0.5 mg HS DIANE Administration Furosemide 10 mg 12/31/17 09:00 Lasix Oral Liquid PEG DAILY DIANE Guaifenesin 400 mg 12/30/17 15:00 Robitussin Liq PEG TID DIANE Sodium Chloride 1,000 mls @ 75 mls/hr 12/28/17 12:15 12/30/17 10:34 Normal Saline IV 75 mls/hr .[id number] DIANE Administration Metoclopramide HCl 5 mg 12/25/17 11:30 12/30/17 09:19 Reglan IVP 5 mg Q6HR DIANE Administration Mirtazapine 15 mg 12/30/17 21:00 Remeron PEG HS DIANE Ondansetron HCl 4 mg 12/23/17 16:48 Zofran IVP Q6H PRN Nausea &/or vomiting Pantoprazole Sodium 40 mg 12/23/17 21:00 12/30/17 09:20 Protonix Iv IVP 40 mg BID DIANE Administration Pravastatin Sodium 80 mg 12/30/17 21:00 Pravachol PEG HS DIANE Silodosin 8 mg 12/30/17 21:00 Rapaflo PEG HS DIANE Sodium Chloride 10 - 80 ml 12/23/17 12:17 12/30/17 09:19 Iv Flush IVF 20 ml PRN PRN Administration Flushing Sodium Chloride 500 ml 12/23/17 13:36 12/23/17 13:48 Normal Saline IV 500 ml PRN PRN Administration Sotalol HCl 80 mg 12/30/17 21:00 Betapace PEG BID DIANE Discontinued Medications Generic Name Dose Route Start Last Admin Trade Name Freq PRN Reason Stop Dose Admin Acetaminophen 500 mg 12/23/17 16:48 12/27/17 08:33 Tylenol PO 500 mg Q5H PRN Administration Discomfort Bisacodyl 10 mg 12/25/17 12:22 12/26/17 14:34 Dulcolax RECTALLY 10 mg TID DIANE Administration Clopidogrel Bisulfate 75 mg 12/24/17 09:00 12/24/17 10:18 Plavix PO Not Given DAILY DIANE Diphenhydramine HCl 50 mg 12/23/17 21:00 12/29/17 20:09 Benadryl PO 50 mg HS DIANE Administration Doxycycline Hyclate 100 mg 12/23/17 21:00 12/24/17 20:28 Vibramycin PO Not Given BID DIANE Doxycycline Monohydrate 100 mg 12/25/17 17:30 12/30/17 09:19 Vibramycin Liquid NG 100 mg BIDWM DIANE Administration Duloxetine HCl 20 mg 12/24/17 09:00 12/29/17 09:16 Cymbalta PO 20 mg DAILY DIANE Administration Furosemide 10 mg 12/24/17 09:00 12/30/17 09:20 Lasix 20 Mg Tab PO 10 mg DAILY DIANE Administration Guaifenesin 400 mg 12/26/17 15:00 12/30/17 09:19 Robitussin Liq PO 400 mg TID DIANE Administration Azithromycin 500 mg/ Sodium 250 mls @ 250 mls/hr 12/23/17 12:17 12/23/17 13: 44 Chloride IV 12/23/17 13:16 Infused ONCE ONE Infusion Sodium Chloride 1,000 mls @ 50 mls/hr 12/23/17 16:15 12/23/17 17:30 Normal Saline IV Infused .Q20H DIANE Infusion Ceftriaxone Sodium 1 g/ Sodium 100 mls @ 200 mls/hr 12/23/17 16:45 12/26/17 16:34 Chloride IV Infused Q24H DIANE Infusion Metronidazole/Sodium Chloride 500 mg in 100 mls @ 100 mls/hr 12/23/17 16:45 12/27/17 09:30 Flagyl Iv Premix IV Infused Q8H DIANE Infusion Sodium Chloride 1,000 mls @ 100 mls/hr 12/23/17 18:45 12/24/17 12:40 Normal Saline IV Infused .Q10H DIANE Infusion Potassium Chloride 20 meq/ 1,010 mls @ 60 mls/hr 12/24/17 12:00 12/25/17 03: 38 Sodium Chloride IV 12/24/17 22:00 Infused .[id number] DIANE Infusion Potassium Chloride/Sodium Chloride 1,000 mls @ 40 mls/hr 12/24/17 23:00 12/27 10:15 Ns With Kcl 20 Meq Premix IV Infused .Q24H DIANE Infusion Lidocaine HCl 0.1 mg 12/28/17 12:05 12/28/17 14:27 Xylocaine 1% ID 12/28/17 12:06 Not Given O ONE Lidocaine HCl 30 ml 12/28/17 12:25 12/28/17 12:25 Xylocaine-Mpf 1% ID 12/28/17 12:26 5 ml O ONE Administration Mirtazapine 15 mg 12/23/17 21:00 12/29/17 20:12 Remeron PO 15 mg HS DIANE Administration Pravastatin Sodium 80 mg 12/23/17 21:00 12/29/17 20:11 Pravachol PO 80 mg HS DIANE Administration Silodosin 8 mg 12/23/17 21:00 12/29/17 20:10 Rapaflo PO 8 mg HS DIANE Administration Silver Nitrate/Potassium Nitrate 1 each 12/23/17 13:42 12/23/17 13:48 Silver Nitrate Applicator TOP 12/23/17 13:43 1 each O ONE Administration Sotalol HCl 80 mg 12/23/17 21:00 12/30/17 09:20 Betapace PO 80 mg BID DIANE Administration - Constitutional no acute distress, thin - Routine HEENT Exam Eye: Absent: conjunctival icterus - Routine Respiratory Exam Present: decreased breath sounds. Absent: accessory muscle use, wheezes - Routine Cardiovascular Exam Present: RRR - Routine Neurological Exam Present: alert, oriented X3 Results - Laboratory Findings Laboratory: Laboratory Results - last 48 hr 12/29/17 12/29/17 12/30/17 04:36 04:36 04:29 WBC 12.2 H 10.9 RBC 3.48 L 3.13 L Hgb 10.7 L D 9.7 L Hct 33.5 L 29.9 L MCV 96.3 95.5 MCH 30.7 31.0 MCHC 31.9 32.4 RDW Std Deviation 51.4 H 49.6 Plt Count 231 232 MPV 10.5 10.3 Immature Gran % (Auto) 0.7 H Neut % (Auto) 60.2 Lymph % (Auto) 23.1 [place] % (Auto) 11.1 H Eos % (Auto) 4.7 H Baso % (Auto) 0.2 Neut # (Auto) 6.6 Lymph # (Auto) 2.5 [place] # (Auto) 1.2 H Eos # (Auto) 0.5 Baso # (Auto) 0.0 Abs Immat Gran (auto) 0.08 H Neutrophils % (Manual) 66.0 Band Neutrophils % 2.0 Lymphocytes % (Manual) 17.0 L Monocytes % (Manual) 9.0 Eosinophils % (Manual) 6.0 H Neutrophils # (Manual) 8.1 H Band Neutrophils # 0.2 Lymphocytes # (Manual) 2.1 Monocytes # (Manual) 1.1 H Eosinophils # (Manual) 0.7 H Anisocytosis 1+ RBC Morph Comment Abnormal Turbidity < 20 Sodium 141 Potassium 4.5 Chloride 107 Carbon Dioxide 26 Anion Gap 8 BUN 13.0 Creatinine 1.0 GFR Calculation 71 BUN/Creatinine Ratio 13 Glucose 83 Calculated Osmolality 270 Calcium 8.1 L Phosphorus 3.7 Icterus Index < 2 Albumin 2.7 L Specimen Hemolysis < 15 12/30/17 04:29 WBC RBC Hgb Hct MCV MCH MCHC RDW Std Deviation Plt Count MPV Immature Gran % (Auto) Neut % (Auto) Lymph % (Auto) [place] % (Auto) Eos % (Auto) Baso % (Auto) Neut # (Auto) Lymph # (Auto) [place] # (Auto) Eos # (Auto) Baso # (Auto) Abs Immat Gran (auto) Neutrophils % (Manual) Band Neutrophils % Lymphocytes % (Manual) Monocytes % (Manual) Eosinophils % (Manual) Neutrophils # (Manual) Band Neutrophils # Lymphocytes # (Manual) Monocytes # (Manual) Eosinophils # (Manual) Anisocytosis RBC Morph Comment Turbidity < 20 Sodium 138 Potassium 3.9 Chloride 106 Carbon Dioxide 26 Anion Gap 6 BUN 16.0 Creatinine 0.9 GFR Calculation 80 BUN/Creatinine Ratio 18 Glucose 165 H Calculated Osmolality 271 Calcium 7.8 L Phosphorus Icterus Index < 2 Albumin Specimen Hemolysis < 15 Assessment and Plan (1) Aspiration into lower respiratory tract Status: Acute Assessment and plan: associated with coughing, hoarseness and leukocytosis with left shift. Likely aspiration pneumonia. He is doing better after bronchoscopy, and NPO status. Doxycycline per PEG tube Recommend ongoing speech therapy to improve dysphagia Current Visit: Yes - Time Spent With Patient Total time spent is greater than 50% in coordination of care (as documented) at patient's floor/unit and/or counseling patient: less than 15 minutes
[2017-12-30] MEDS: DULOXETINE 20 MG CAPSULE PO SCH (10:54)
[2017-12-30] MEDS ORDERED: TRAMADOL 50 MG TABLET PO PRN (15:17)
--- NOTE | 2017-12-30 15:24 | Progress Note ---
- Date 12/30/17 Subjective: Mr. Stanford is seen today in follow up with is daughter, Imtiaz, at the bedside. He reports that he is doing well. He complains of chronic low back pain but denies any fevers, chills, chest pain, shortness of breath, abdominal pain, nausea, vomiting or dysuria. PEG was placed on 12/28/[address] Cash and being followed by Dr. Reynolds. He began gastric feedings on 12/29/17 with Jevity at 55mL/hr and tolerating well. He maintains strict NPO status. Medications have been adjusted to be compatible with PEG administration. Leukocytosis resolved. Slight decrease in hemoglobin (hgb 9.7). Electrolytes stable. Plavix was restarted today. Anticipate discharge to [facility] tomorrow, . Objective Vital signs: Temperature 96.7 F L 12/30/17 11:34 Pulse Rate 85 12/30/17 11:34 Respiratory Rate 20 12/30/17 12:08 Blood Pressure 141/64 H 12/30/17 11:34 Pulse Oximetry 99 12/30/17 12:08 Height/Weight/BMI: Height 5 ft 10 in Weight 136 lb 10.986 oz Body Mass Index 19.0 Comments: Resting in bed with family at bedside. - Constitutional Present: no acute distress, well nourished, well developed, thin, cooperative - Routine HEENT Exam Head: Present: normocephalic, atraumatic Eye: Present: PERRL. Absent: conjunctival icterus ENT: Present: mucous membranes dry - Routine Respiratory Exam Present: CTA bilaterally. Absent: respiratory distress, wheezes Comments: Breathing easily on room air. - Routine Cardiovascular Exam Present: RRR, no murmur - Routine Abdominal Exam Present: soft, non distended Comments: PEG in place. - Routine Extremities Exam Present: no edema, pulses intact - Routine Musculoskeletal Exam Musculoskeletal: Present: no clubbing or cyanosis, moving extremities well - Routine Skin Exam Present: dry, warm Comments: Afebrile. - Routine Neurological Exam Present: alert, oriented X3, moving all extremities, hearing grossly intact, normal speech - Routine Lymphatic Exam Lymphatic: Absent: lymphedema - Routine Psychiatric Exam Present: cooperative Results - Labs CBC & Chem 7: 12/30/17 04:29 12/30/17 04:29 Microbiology Results: Microbiology 12/28/17 12:30 Gastric Biopsy Helicobacter pylori Rapid Urease - Final 12/23/17 16:29 Bronchial Washing Acid Fast Bacilli Culture & Smear - Preliminary 12/23/17 16:29 Bal, Right Lower Lobe Gram Stain - Final 12/23/17 16:29 Bal, Right Lower Lobe Bronchial Aspirate Culture - Final Streptococcus viridans group Coag negative Staphylococcus Anaerobic Gram-Negative Luis Fernando 12/23/17 16:29 Mini-Bal Fungal Culture and Stain - Preliminary Assessment and Plan Assessment and Plan: Assessment Severe aspiration of all consistencies -recommend strict nothing by mouth Sepsis (SIRS: leukocytosis, tachypnea. Source: Lung)-resolved aspiration pneumonia?/pneumonitis-chest x-ray has been clear-Rocephin and metronidazole discontinued 12/27/2017 PEG tube placed by Dr. Belcher on 12/28/2017 Normocytic anemia CKD Stage 3 (Dr. Francis - baseline Cr 1.4) - Pt to avoid JYOTI, ARBs, NSAIDs and Bactrim Probable renal stenosis, b/l carotid stenosis HTN HLD Nonrheumatic aortic regurgitation Diffuse atherosclerosis w/ axillo-bifemoral bypass 2010 with R axillary artery stent placement 07/15 (Dr Valverde) - on Plavix Paroxysmal afib (Dr. Hwang) - previously on warfarin but DC'd d/t fall risk Basal cell CA R lower eyelid (Dr. Galvez/Shea) BPH w/ chronic urinary retention (previously saw Dr. Johnson) ? chronic leukemia (follows with Dr. 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 pylori urease negative Plan - 12/30/17 S/P PEG placement by Dr. Cash on 12/28/17. Tube feeding initiated on 12/29/17 at 55cc/hr wiht jevity 1.2 and tolerating well. Goal treatment is 70cc/hr per calculations by nutrition. Plavix was resumed today. Continue Protonix - gastric biopsies revealed mild chronic gastritis with reactive epithelial changes; no metaplasia, dysplasia or malignant neoplasm identified; no Helicobacter. Continue doxycycline which he is on chronically for suppression of MRSA infection in his back. He had 4 days of ceftriaxone and Flagyl for possible aspiration PNA (12/23/17-12/27/17). Continue guaifenesin for thickened secretions. Suctioning as indicated. Continue to have wound and skin nurses follow his skin lesions on his feet and back. Plan to dismiss to [facility] at [facility] on 12/31/17 to resume care under Dr. Benoit. Will recheck labs in Am to monitor blood counts, electrolytes and renal function. Home medications converted to oral preps for PEG administration. Avodart changed to Flomax 0.4 QHS due to inability to administer through PEG. Monitor closely for signs of urinary retention. Patient reports he was previously on Ultram PRN back pain. Will resume Ultram 50mg Q8H PRN pain. DVT Prophylaxis: SCD's GI Prophylaxis: Protonix Resuscitation Status: Do Not Resuscitate - Time spent with patient Time with patient PN: 35 minutes Coordination of Care: >50% of visit spent providing counseling/coordination of care - Physician Narrative Physician: Mary Givens MD Narrative: Date: 12/30/17 Time: 2029 I have independently evaluated and examined this patient. I reviewed the chart, the patient's history, and the PIE FILLING MIXER/PA's documented findings as above. We discussed and formulated the assessment and plan as above with additions as below: Mr. Stanford was seen late this morning at which time he denied dyspnea, nausea, or vomiting. He reports good tolerance of tube feedings. He had ambulated a short distance with therapy prior to my arrival and reported generalized weakness. NAD, alert resp non-labored, abdomen soft, minimally tender to palpation, abdominal binder on Discussed with Adriaon-Cymbalta was started for depression when creatinine was elevated and other antidepressants were contraindicated. Unable to provide Cymbalta currently since time-released, will monitor one mirtazapine as a single agent and reassess need for second antidepressant. Discussed with senior biostatistician-tube feedings increased to 70 mL per hour with plans to convert to bolus feedings early next week. Patient will require 7 cans of Nutren 1.2 daily with anticipated schedule of 2 cans 3 times a day and one can at bedtime; 60 mL free water pre/post each feeding and will give approximately 500 mL free water daily with additional water being given periodically with medication flushes. Recheck phosphorus tomorrow to exclude refeeding phenomenon. Anticipate discharge tomorrow. Hospital Course Summary Disclaimer: The visit summary below is not to be considered part of the above Progress Note. Hospital Course: 12/23/17 Admit, IP. Stay to exceed 2 overnights for bronch and tx of aspiration pneumonitis and given multiple comorbidities and age. Consult to Dr Hurtado - planning bronchoscopy this afternoon Emilee Corona, Rocephin (despite PCN allergy, pt has tolerated Omnicef) for aspiration PNA Discussed venous dopplers to further w-u DDimer with pt. Pt declines as his sxs started after choking on the pill. Low likelihood of PE. Dietitian consult re: borderline low BMI/anorexia. Speech consult re: possible aspiration. PT/OT for eval of functional abilities and for strengthening. SCD's for VTE ppx Protonix IV BID for GI ppx and aspiration Full Code Dr Benoit - PCP 12/24/2017 Continue Rocephin and metronidazole for aspiration. White count is down slightly. I had a long talk with the patient and his son-in-law regarding his barium swallow. We discussed options and the patient states he is not ready for comfort care and would like to consider PEG tube placement in order to improve his nutrition, and have a safer way to obtain nutrition, fluids and to take his pills. He understands that there is still some risk for aspiration even with PEG tube placement. I did consult Dr. Cash to see the patient. He stated that if the patient did decide for PEG tube after his consultation, the procedure with likely not be performed until Wednesday at the earliest. NG tube was placed today and to feedings and free water initiated. We will advance to feeding as tolerated. Decrease or discontinue IV fluids tomorrow depending upon how he is tolerating tube feedings. Keep the head of the bed elevated at least 45 at all times to prevent aspiration. The nurse was notified to call if he should have worsening in his breathing or difficulties with tube feeds. Continue breathing treatments Continue PT OT. Family would like to consider inpatient rehabilitation at discharge. Will obtain an IRU screen. Check renal panel, CBC, magnesium in the morning. 12/25/2017 Continue Rocephin and metronidazole for aspiration. No pneumonia or infiltrate seen on chest x-ray. White blood cell count is improving. Possibly decrease or de-escalate antibiotics tomorrow. Because of the patient's very poor swallow and high risk for continued aspiration, the patient was made strict nothing by mouth yesterday. The patient would like to consider PEG tube placement and Dr. Cash has been consulted. NG was placed yesterday and tube feeding was initiated. We'll start Reglan iv for possible ileus. Continue tube feeds at 30 ML's per hour and will hold off on increasing the rate at this time. Consider adding Dulcolax suppositories. Will discuss with Dr. Cash after he sees the patient and reviews his KUB, to make sure he agrees with continued tube feeding management. Continue to monitor residuals. Discontinue free water flushes. Continue IV fluids at 60 ML's per hour for now. Continue to have the head of the bed elevated at 45 at all times to prevent aspiration. Continue breathing treatments Renal panel, CBC, magnesium tomorrow. Recheck P2 Y 12 platelet function tomorrow IRU screen has been ordered Discussed with the patient's nurse, patient and family. Will discuss today with Dr. Cash. 12/26/2017 Continue Rocephin and metronidazole for aspiration. Repeat chest x-ray tomorrow. Likely discontinue antibiotics if no infiltrates and white count not worsening. Tube feedings with two thirds TwoCal HN and one third water to run at 50 ML's per hour. Increase by 10 mL's every 6 hours as tolerated up to 65 ML's per hour as tolerated. Continue Reglan for now. Dulcolax suppositories as needed. Will discontinue scheduled Dulcolax. Decrease free water to 40 ML's per hour. Guaifenesin to help decrease the thickness of the phlegm in his throat. Wound and skin consult regarding skin breakdown on his toes and regarding heel pain and abrasions on his back Check CBC and basic metabolic profile tomorrow Recheck P2 Y 12 platelet function tomorrow Discussed with Dr. Cash, if testing shows platelets are no longer affected by Plavix and the patient is tolerating tube feedings, will likely undergo PEG tube placement in the next 1-2 days. Continue to elevate the head of the bed at 45 to prevent aspiration IRU screen in place Continue doxycycline for chronic MRSA infection Discussed with the patient, his nurse, and Dr. Cash. Will attempt to call patient's family to update them. 12/27/2017 White count is normalized. No pneumonia on chest x-ray. We'll discontinue Rocephin and metronidazole for aspiration. Change to feeds to Jevity 1.2 to run at 55 ML's per hour. We'll give 500 ML's free water in addition. Check P2 Y 12 tomorrow. If this is greater than 237, plan is for surgery tomorrow for PEG tube placement. Discussed with Dr. Cash, family and the patient. The patient still wants to proceed with PEG tube placement. Wound and skin nurses were consulted regarding small lesions on his toes, and abrasions on his back. 12/28/17 The patient underwent PEG tube placement this morning and did well. Per Dr. Cash, the patient can have his oral meds per PEG today. He will likely start tube feeding tomorrow. The patient can restart his Plavix on 12/30/2017. The patient may have NT suctioning by RT when necessary. Continue guaifenesin for thickened secretions 12/29/17 The patient underwent PEG tube placement yesterday and is doing well with tube feedings. The patient can restart his Plavix on 12/30/2017. Continue IV pantoprazole-endoscopic findings of gastritis with small antral ulcers noted. Pathology pending. Cont doxycycline which he is on chronically for suppression of MRSA infection in his back. He had 4 days of ceftriaxone and Flagyl for possible aspiration PNA. Plan to dismiss to [facility] at [facility] in the next few days. 12/30/17 Tube feeding initiated on 12/29/17 at 55ml/hr, rate increased to 70 mL/hr her today. Plavix was resumed today. Continue Protonix - gastric biopsies revealed mild chronic gastritis with reactive epithelial changes; no metaplasia, dysplasia or malignant neoplasm identified; no Helicobacter. Convert to PPI per PEG in a.m. Continue doxycycline which he is on chronically for suppression of MRSA infection in his back. He had 4 days of ceftriaxone and Flagyl for possible aspiration PNA (12/23/17-12/27/17). Continue guaifenesin for thickened secretions. Suctioning as indicated. Continue to have wound and skin nurses follow his skin lesions on his feet and back. Plan to dismiss to [facility] at [facility] on 12/31/17 to resume care under Dr. Benoit. Will recheck labs in Am to monitor blood counts, electrolytes and renal function. Home medications converted to oral preps for PEG administration. Avodart changed to Flomax 0.4 QHS due to inability to administer through PEG. Monitor closely for signs of urinary retention. Cymbalta cannot be given per PEG due to extended release formulation. Patient reports he was previously on Ultram PRN back pain. Will resume Ultram 50mg Q8H PRN pain.
[2017-12-30] MEDS: CLOPIDOGREL 75 MG TABLET PO SCH (16:03)
[2017-12-30] MEDS: GUAIFENESIN 200mg/10ml ORAL LIQUID PEG SCH ×2 (16:05→21:07)
[2017-12-30] MEDS: DOXYCYCLINE 25 MG/5 ML PEG SCH (18:12)
[2017-12-30] MEDS ORDERED: MIRTAZAPINE 15 MG TABLET PEG SCH (21:00)
[2017-12-30] MEDS ORDERED: TAMSULOSIN 0.4 MG CAPSULE PO SCH (21:00)
[2017-12-30] MEDS ORDERED: PRAVASTATIN 40 MG TABLET PEG SCH (21:00)
[2017-12-30] MEDS ORDERED: DIPHENHYDRAMINE 12.5 MG/5 ML ORAL LIQUID PEG SCH (21:00)
[2017-12-30] MEDS: SOTALOL 80 MG TABLET PEG SCH (21:09)
[2017-12-31] MEDS: METOCLOPRAMIDE 10mg/2ml INJECTION IVP SCH ×2 (03:11→09:59)
[2017-12-31] MEDS: SALINE FLUSH 10ml SYRINGE IVF PRN ×2 (03:12→10:00)
[2017-12-31] MEDS ORDERED: PANTOPRAZOLE 40 MG TABLET PEG SCH (06:30)
[2017-12-31] MEDS: ALBUTEROL/IPRATROPIUM 2.5mg-0.5mg/3ml NEB AEROSOL SCH (07:35)
[2017-12-31 07:58] VITALS: BP 154/58; TEMP 98.5; O2SAT 98
--- NOTE | 2017-12-31 08:25 | Wound Care Progress Note ---
Wound Center Progress Note: Pt seen for wound care follow up r/t intergluteal cleft wound. Pt resting in bed , daughter at bedside, no complaints of pain. Pt reports he has had the "sore" on his buttocks for months. Daughter states wound will open up from time to time. Home health has been monitoring wound. Intergluteal cleft wound: fissure, partial thickness wound. Wound bed: pink, non-granulating, no drainage. Periwound: blanchable erythema. L medial buttock has a small area of denudation r/t MASD, flaky. Periwound: blanchable erythema. Nursing staff has been applying barrier cream/Mepilex, change q 3 days and PRN.
--- NOTE | 2017-12-31 08:54 | Pulmonology Progress Note ---
Subjective Principal diagnosis: Aspiration pna Interval history: Pt awake in bed and doing well. Minimal cough and sputum noted at this time. Had PEG placed and doing well with that. Exam Vital signs: Temperature 98.5 F 12/31/17 07:56 Pulse Rate 83 12/31/17 07:56 Respiratory Rate 18 12/31/17 07:56 Blood Pressure 154/58 H 12/31/17 07:56 Pulse Oximetry 98 12/31/17 07:56 Inpatient Medications: Generic Name Dose Route Start Last Admin Trade Name Freq PRN Reason Stop Dose Admin Acetaminophen 500 mg 12/30/17 10:30 Tylenol 650 Mg/20.3 Ml Soln PEG Q5H PRN DISCOMFORT Albuterol/Ipratropium 3 ml 12/23/17 19:00 12/31/17 07:35 Duoneb AEROSOL 3 ml RTQID DIANE Administration Bisacodyl 10 mg 12/26/17 18:34 Dulcolax RECTALLY TID PRN Constipation Clopidogrel Bisulfate 75 mg 12/30/17 15:00 12/30/17 16:03 Plavix PO 75 mg DAILY DIANE Administration Diphenhydramine HCl 50 mg 12/30/17 21:00 12/30/17 21:16 Benadryl Liquid PEG 50 mg HS DIANE Administration Doxycycline Monohydrate 100 mg 12/30/17 17:30 12/30/17 18:12 Vibramycin Liquid PEG 100 mg BIDWM DIANE Administration Duloxetine HCl 20 mg 12/31/17 09:00 Cymbalta PEG DAILY DIANE Furosemide 10 mg 12/31/17 09:00 Lasix Oral Liquid PEG DAILY DIANE Guaifenesin 400 mg 12/30/17 15:00 12/30/17 21:07 Robitussin Liq PEG 400 mg TID DIANE Administration Metoclopramide HCl 5 mg 12/25/17 11:30 12/31/17 03:11 Reglan IVP 5 mg Q6HR DIANE Administration Mirtazapine 15 mg 12/30/17 21:00 12/30/17 21:08 Remeron PEG 15 mg HS DIANE Administration Ondansetron HCl 4 mg 12/23/17 16:48 Zofran IVP Q6H PRN Nausea &/or vomiting Pantoprazole Sodium 40 mg 12/31/17 06:30 12/31/17 05:31 Protonix Tab PEG 40 mg ACBID DIANE Administration Pravastatin Sodium 80 mg 12/30/17 21:00 12/30/17 21:08 Pravachol PEG 80 mg HS DIANE Administration Silodosin 8 mg 12/30/17 21:00 12/30/17 21:08 Rapaflo PEG 8 mg HS DIANE Administration Sodium Chloride 10 - 80 ml 12/23/17 12:17 12/31/17 03:12 Iv Flush IVF 10 ml PRN PRN Administration Flushing Sodium Chloride 500 ml 12/23/17 13:36 12/23/17 13:48 Normal Saline IV 500 ml PRN PRN Administration Sotalol HCl 80 mg 12/30/17 21:00 12/30/17 21:09 Betapace PEG 80 mg BID DIANE Administration Tamsulosin HCl 0.4 mg 12/30/17 21:00 12/30/17 21:08 Flomax PO 0.4 mg HS DIANE Administration Tramadol HCl 50 mg 12/30/17 15:17 12/30/17 16:03 Ultram PO 50 mg Q8H PRN Administration Pain Discontinued Medications Generic Name Dose Route Start Last Admin Trade Name Freq PRN Reason Stop Dose Admin Acetaminophen 500 mg 12/23/17 16:48 12/27/17 08:33 Tylenol PO 500 mg Q5H PRN Administration Discomfort Bisacodyl 10 mg 12/25/17 12:22 12/26/17 14:34 Dulcolax RECTALLY 10 mg TID DIANE Administration Clopidogrel Bisulfate 75 mg 12/24/17 09:00 12/24/17 10:18 Plavix PO Not Given DAILY DIANE Diphenhydramine HCl 50 mg 12/23/17 21:00 12/29/17 20:09 Benadryl PO 50 mg HS DIANE Administration Doxycycline Hyclate 100 mg 12/23/17 21:00 12/24/17 20:28 Vibramycin PO Not Given BID DIANE Doxycycline Monohydrate 100 mg 12/25/17 17:30 12/30/17 09:19 Vibramycin Liquid NG 100 mg BIDWM DIANE Administration Duloxetine HCl 20 mg 12/24/17 09:00 12/30/17 10:54 Cymbalta PO 20 mg DAILY DIANE Administration Dutasteride 0.5 mg 12/23/17 21:00 12/29/17 20:10 Avodart PO 0.5 mg HS DIANE Administration Furosemide 10 mg 12/24/17 09:00 12/30/17 09:20 Lasix 20 Mg Tab PO 10 mg DAILY DIANE Administration Guaifenesin 400 mg 12/26/17 15:00 12/30/17 09:19 Robitussin Liq PO 400 mg TID DIANE Administration Azithromycin 500 mg/ Sodium 250 mls @ 250 mls/hr 12/23/17 12:17 12/23/17 13: 44 Chloride IV 12/23/17 13:16 Infused ONCE ONE Infusion Sodium Chloride 1,000 mls @ 50 mls/hr 12/23/17 16:15 12/23/17 17:30 Normal Saline IV Infused .Q20H DIANE Infusion Ceftriaxone Sodium 1 g/ Sodium 100 mls @ 200 mls/hr 12/23/17 16:45 12/26/17 16:34 Chloride IV Infused Q24H DIANE Infusion Metronidazole/Sodium Chloride 500 mg in 100 mls @ 100 mls/hr 12/23/17 16:45 12/27/17 09:30 Flagyl Iv Premix IV Infused Q8H DIANE Infusion Sodium Chloride 1,000 mls @ 100 mls/hr 12/23/17 18:45 12/24/17 12:40 Normal Saline IV Infused .Q10H DIANE Infusion Potassium Chloride 20 meq/ 1,010 mls @ 60 mls/hr 12/24/17 12:00 12/25/17 03: 38 Sodium Chloride IV 12/24/17 22:00 Infused .[id number] DIANE Infusion Potassium Chloride/Sodium Chloride 1,000 mls @ 40 mls/hr 12/24/17 23:00 12/27 10:15 Ns With Kcl 20 Meq Premix IV Infused .Q24H DIANE Infusion Sodium Chloride 1,000 mls @ 75 mls/hr 12/28/17 12:15 12/30/17 16:43 Normal Saline IV Infused .[id number] DIANE Infusion Lidocaine HCl 0.1 mg 12/28/17 12:05 12/28/17 14:27 Xylocaine 1% ID 12/28/17 12:06 Not Given O ONE Lidocaine HCl 30 ml 12/28/17 12:25 12/28/17 12:25 Xylocaine-Mpf 1% ID 12/28/17 12:26 5 ml O ONE Administration Mirtazapine 15 mg 12/23/17 21:00 12/29/17 20:12 Remeron PO 15 mg HS DIANE Administration Pantoprazole Sodium 40 mg 12/23/17 21:00 12/30/17 21:07 Protonix Iv IVP 12/30/17 23:00 40 mg BID DIANE Administration Pravastatin Sodium 80 mg 12/23/17 21:00 12/29/17 20:11 Pravachol PO 80 mg HS DIANE Administration Silodosin 8 mg 12/23/17 21:00 12/29/17 20:10 Rapaflo PO 8 mg HS DIANE Administration Silver Nitrate/Potassium Nitrate 1 each 12/23/17 13:42 12/23/17 13:48 Silver Nitrate Applicator TOP 12/23/17 13:43 1 each O ONE Administration Sotalol HCl 80 mg 12/23/17 21:00 12/30/17 09:20 Betapace PO 80 mg BID DIANE Administration - Constitutional no acute distress, average body habitus, cooperative - Routine HEENT Exam Head: Present: normocephalic, atraumatic Eye: Present: EOMI, PERRL - Routine Neck Exam Present: supple, full ROM, trachea midline - Routine Respiratory Exam Present: decreased breath sounds, rhonchi. Absent: accessory muscle use, patient mechanically ventilated - Routine Cardiovascular Exam Present: RRR, murmur - Routine Abdominal Exam Present: soft, normoactive bowel sounds - Routine Extremities Exam Present: no edema, non tender, full ROM. Absent: cyanosis, clubbing, edema - Routine Back/Spine/Pelvis Exam Back/Spine: Present: full ROM - Routine Skin Exam Present: intact, dry - Routine Neurological Exam Present: alert, oriented X3, CN II-XII intact - Routine Psychiatric Exam Present: normal affect, normal thought process Results - Laboratory Findings Laboratory: Laboratory Results - last 48 hr 12/30/17 12/30/17 12/30/17 04:29 04:29 11:38 WBC 10.9 RBC 3.13 L Hgb 9.7 L Hct 29.9 L MCV 95.5 MCH 31.0 MCHC 32.4 RDW Std Deviation 49.6 Plt Count 232 MPV 10.3 Immature Gran % (Auto) 0.7 H Neut % (Auto) 60.2 Lymph % (Auto) 23.1 [place]ster % (Auto) 11.1 H Eos % (Auto) 4.7 H Baso % (Auto) 0.2 Neut # (Auto) 6.6 Lymph # (Auto) 2.5 [place] # (Auto) 1.2 H Eos # (Auto) 0.5 Baso # (Auto) 0.0 Abs Immat Gran (auto) 0.08 H Turbidity < 20 Sodium 138 Potassium 3.9 Chloride 106 Carbon Dioxide 26 Anion Gap 6 BUN 16.0 Creatinine 0.9 GFR Calculation 80 BUN/Creatinine Ratio 18 Glucose 165 H Glucometer 131 Calculated Osmolality 271 Calcium 7.8 L Phosphorus Magnesium Icterus Index < 2 Specimen Hemolysis < 15 12/31/17 12/31/17 12/31/17 00:04 05:01 05:01 WBC 10.1 RBC 3.24 L Hgb 9.8 L Hct 30.8 L MCV 95.1 MCH 30.2 MCHC 31.8 RDW Std Deviation 50.2 Plt Count 234 MPV 10.0 Immature Gran % (Auto) 0.9 H Neut % (Auto) 54.4 Lymph % (Auto) 25.9 [place] % (Auto) 12.3 H Eos % (Auto) 6.2 H Baso % (Auto) 0.3 Neut # (Auto) 5.5 Lymph # (Auto) 2.6 [place] # (Auto) 1.3 H Eos # (Auto) 0.6 H Baso # (Auto) 0.0 Abs Immat Gran (auto) 0.09 H Turbidity < 20 Sodium 138 Potassium 4.2 Chloride 105 Carbon Dioxide 28 Anion Gap 5 BUN 18.0 Creatinine 0.9 GFR Calculation 80 BUN/Creatinine Ratio 20 Glucose 149 H Glucometer 162 Calculated Osmolality 271 Calcium 7.9 L Phosphorus 4.1 Magnesium 2.0 Icterus Index < 2 Specimen Hemolysis < 15 Assessment and Plan (1) Aspiration into lower respiratory tract Status: Acute Current Visit: Yes (2) Dysphagia Status: Acute Current Visit: Yes (3) Smoking hx Status: Acute Current Visit: Yes - Assessment and Plan Plan: Pt currently on RA and tolerating well. On BT's with A/A QID with acapella, improved rhonchi RLL on exam. S/P bronchoscopy, cx's + strep veridans, on doxy now. WBC normal, afebrile. Pt with strict NPO 2/2 aspiration of all materials, s /p peg with TF at this time. awaiting transfer, ok per pulm. - Time Spent With Patient Total time spent is greater than 50% in coordination of care (as documented) at patient's floor/unit and/or counseling patient: less than 15 minutes
[2017-12-31] MEDS ORDERED: FUROSEMIDE 40 MG/4 ML ORAL LIQUID PEG SCH (09:00)
[2017-12-31] MEDS ORDERED: DULOXETINE 20 MG CAPSULE PEG SCH (09:00)
[2017-12-31] MEDS: DOXYCYCLINE 25 MG/5 ML PEG SCH (09:56)
[2017-12-31] MEDS: CLOPIDOGREL 75 MG TABLET PO SCH (09:57)
[2017-12-31] MEDS: GUAIFENESIN 200mg/10ml ORAL LIQUID PEG SCH (09:58)
[2017-12-31] MEDS: SOTALOL 80 MG TABLET PEG SCH (09:59)
[2017-12-31 10:00] VITALS: PULSE 72
[2017-12-31 11:39] VITALS: RESP 15
--- NOTE | 2017-12-31 11:54 | Extended Care Facility Orders ---
Admission Orders Admit to:: Snf Allergies/Adverse Reactions: Allergies Iodinated Contrast- Oral and IV Dye Allergy (Unknown, Verified 12/23/17 12:10) RASH, FLU-LIKE S/S Penicillins Allergy (Unknown, Verified 12/23/17 12:10) RASH,FLU-LIKE SYMPTOMS sulfamethoxazole [From Bactrim] Adverse Reaction (Intermediate, Verified 16:55) Renal Insufficiency trimethoprim [From Bactrim] Adverse Reaction (Intermediate, Verified 12/23/17 16 :55) Renal Insufficiency clindamycin Adverse Reaction (Unknown, Verified 12/23/17 12:10) DIARRHEA Admitting Diagnosis: aspiration pneumonitis Admitting Physician: Mary Givens MD Attending Physician: Mary Givens MD Code Status: Do Not Resuscitate Anticiapted Length of Stay: 30 days or less Rehab Potential: fair Rehab Prognosis: fair Diet: Nothing by mouth. Tube feeds. Jevity 1.2 at 70ml/hr. Free water slowly 60ml q4 hours. May use 30ml free water to flush meds as needed. Will plan to start bolus feedings on January 04. Patient will require 7 cans of Nutren 1.2 daily with anticipated schedule of 2 cans 3 times a day and one can at bedtime; 60 mL free water pre/post each feeding and will give approximately 500 mL free water daily with additional water being given periodically with medication flushes. Wound/Incision Care: Change Mepilex dressing to skin tear on R arm and to sacral wound q 3 days. May use Facility Protocol or Standing Orders: Yes May have flu vaccine: Yes Evaluations/Treatment: Speech, PT, OT Snf Certification: I certify that SNF services are required to be given on an Inpatient basis because of the patients need for snf care on a continuing basis for the condition(s) for which he/she received inpatient hospital services prior to his/her transfer to the SNF. SNF inpatient care is necessary for the following reasons Indication for Snf: Other (PT, OT, ST, tube feeding education) - Additional Information In Event of Arrest: Do Not Start CPR Resident is Aware of Diagnosis: Yes Laboratory/Radiology: Check BS's BID Referrals: Wilfred Benoit MD [Primary Care Provider] - 1 Week
[2017-12-31] MEDS ORDERED: FERROUS SULFATE 220 MG/5 ML ORAL LIQUID PO SCH (12:00)
--- NOTE | 2017-12-31 21:48 | Discharge Summary ---
Discharge Information Date of admission: 12/23/17 13:49 Anticipated date of discharge: 12/31/17 Attending Physician: Mary Givens MD Primary care physician: Wilfred Benoit MD Consults: Consulting Provider: Gurjit Cash Consulting provider: Gurjit Hurtado - Discharge Diagnosis (1) Aspiration into lower respiratory tract Status: Acute Sepsis (SIRS: leukocytosis, tachypnea. Acute aspiration foreign body Aspiration pneumonia/pneumonitis Dysphagia with severe aspiration of all consistencies Gastritis with small antral ulcerations-identified endoscopically 12/28/17; H. pylori urease negative CKD Stage 3 HTN HLD Nonrheumatic aortic regurgitation Diffuse peripheral vascular disease w/ axillo-bifemoral bypass 2010 with R axillary artery stent placement 07/15; bilateral carotid stenosis, probable renal stenosis Paroxysmal afib Basal cell CA R lower eyelid BPH w/ chronic urinary retention Iron deficiency anemia, History of B12 deficiency Depression Anorexia Malnutrition, moderate protein - Procedures Procedures: Bronchoscopy on 12/23/17 demonstrating inflammation in the trachea and michelle with severe mucosal injury and exudate consistent with chronic aspiration. Mucosal inflammation with inflammatory exudate extended into the right main, right upper lobe, bronchus intermedius, right middle lobe, and right lower lobe. Airways in the left lung were clear. No foreign body described. PEG tube placed by Dr. Aleman on 12/28/2017 - Laboratory Labs: On admission 12/24/17-WBC 26.3 with 78% neutrophils, 4% bands, hemoglobin 10.7. Initial chemistries unremarkable with BUN 27, creatinine 1.1. ProBNP 3030. B 12 > 1000, TSH 1.11, and pre-albumin 9.8 on 12/2412/31/17 05:01 12/31/17 05:01 - Microbiology Microbiology 12/28/17 12:30 Gastric Biopsy Helicobacter pylori Rapid Urease -negative 12/23/17 16:29 Bronchial Washing Acid Fast Bacilli Culture & Smear - Preliminary; no AFB seen on smears, culture pending 12/23/17 16:29 Bal, Right Lower Lobe Gram Stain - no organisms seen, many neutrophils 12/23/17 16:29 Bal, Right Lower Lobe Bronchial Aspirate Culture - Final Streptococcus viridans group-light growth Coag negative Staphylococcus-light growth Anaerobic Gram-Negative Luis Fernando-scant growth 12/23/17 16:29 Mini-Bal Fungal Culture and Stain - Preliminary-no fungal elements seen, fungal culture pending Blood cultures 2 obtained 12/23/17 negative after 5 days - Radiology Radiology: Chest x-ray on 12/23/17: There are some calcified granulomas in the right lung base. Heart size is normal. The lungs are clear. There is no focal opacity to suggest atelectasis or pneumonia. No mediastinal or hilar adenopathy. No pleural effusion. There is no significant tortuosity of the descending thoracic aorta. There is mild scoliosis with mild degenerative disc disease of the thoracic spine. There is a vascular stent in the right subclavian region. IMPRESSION: Evidence for prior granulomatous disease. No definite lobar consolidation or pleural effusion. ----- Modified barium swallow on 12/24/17: Deep tracheal penetration with eventual aspiration was visualized with all consistencies of barium. On the AP view the bolus showed no obvious preference for either side. Impression: Deep tracheal penetration with eventual aspiration with all consistencies of barium. ----- Chest x-ray in 12/24/17 Unchanged from 12/23/17, without evidence of developing pneumonia. ----- Chest x-ray on 12/27/17 Stable radiographic findings, as above. ----- KUBs obtained during hospital course to confirm/reconfirm NG placement. - Pathology Cytology bronchoalveolar lavage right lower lobe obtained 12/23/17-no malignant cells seen. Gastric mucosal biopsy obtained 12/28/17 demonstrated mild chronic gastritis with reactive epithelial changes. No metaplasia, dysplasia, or malignant neoplasia. No Helicobacter organisms identified. History of Present Illness HPI: Pt is an 87 yo male who presented to ED today for increasing weakness and respiratory concerns after choking on a pill yesterday around 0915. He states he was swallowing the pill and choked and had immediate pain/burning. He has had increasing sputum production, coughing and "gurgling" in his lungs. He saw his PCP (Dr. Benoit) yesterday and was started on an antibiotic for possible aspiration pneumonia. He hasn't been eating or drinking since this episode, so he is getting weaker, thus family opted to bring him in for evaluation. He also had a fall last week (reportedly b/c he had new shoes and this caused the fall) w/ resultant skin tear to R arm and contusion to forehead. At this point, he doesn't c/o SOA and the pain has resolved, but he is very weak and continues to have significant noises in his chest. In ED, his CXR showed no definite lobar consolidation, but his R lung sounds are significantly abnl and his WBC is 28.5. Dr. Hurtado was consulted and plans to bronch pt later this afternoon. Objective Vital signs: Temperature 98.5 F 12/31/17 07:56 Pulse Rate 72 12/31/17 09:59 Respiratory Rate 15 12/31/17 11:36 Blood Pressure 154/58 H 12/31/17 07:56 Pulse Oximetry 98 12/31/17 07:56 NAD, alert, moderate kyphosis Respirations nonlabored, good airflow, faint crackles at the bases bilaterally Abdomen soft, nontender, bowel sounds present; abdominal binder on Height/Weight/BMI: Height 1.78 m Weight 61.8 kg Body Mass Index 19.0 Hospital Course This is a general summary of the patient's hospital course. For more details refer to the complete medical record. Hospital course: 12/23/17 Admit, IP. Stay to exceed 2 overnights for bronch and tx of aspiration pneumonitis and given multiple comorbidities and age. Consult to Dr Hurtado - planning bronchoscopy this afternoon Duonebs, Flagyl, Rocephin (despite PCN allergy, pt has tolerated Omnicef) for aspiration PNA Discussed venous dopplers to further w-u DDimer with pt. Pt declines as his sxs started after choking on the pill. Low likelihood of PE. Dietitian consult re: borderline low BMI/anorexia. Speech consult re: possible aspiration. PT/OT for eval of functional abilities and for strengthening. Full Code Dr Benoit - PCP 12/24/17 Continue Rocephin and metronidazole for aspiration. White count is down slightly. Bronchoscopy yesterday consistent with chronic aspiration. I had a long talk with the patient and his son-in-law regarding his barium swallow which demonstrated aspiration with all consistencies. We discussed options and the patient states he is not ready for comfort care and would like to consider PEG tube placement in order to improve his nutrition, and have a safer way to obtain nutrition, fluids and to take his pills. He understands that there is still some risk for aspiration even with PEG tube placement. I did consult Dr. Cash to see the patient. He stated that if the patient did decide for PEG tube after his consultation, the procedure with likely not be performed until Wednesday at the earliest. NG tube was placed today and to feedings and free water initiated. We will advance to feeding as tolerated. Decrease or discontinue IV fluids tomorrow depending upon how he is tolerating tube feedings. Keep the head of the bed elevated at least 45 at all times to prevent aspiration. The nurse was notified to call if he should have worsening in his breathing or difficulties with tube feeds. Continue breathing treatments Continue PT OT. Family would like to consider inpatient rehabilitation at discharge. Will obtain an IRU screen. 12/25/17 Continue Rocephin and metronidazole for aspiration. No pneumonia or infiltrate seen on chest x-ray. White blood cell count is improving. Possibly decrease or de-escalate antibiotics tomorrow. Because of the patient's very poor swallow and high risk for continued aspiration, the patient was made strict nothing by mouth yesterday. The patient would like to consider PEG tube placement and Dr. Cash has been consulted. NG was placed yesterday and tube feeding was initiated. Start Reglan for possible ileus. Continue tube feeds at 30 ML's per hour and will hold off on increasing the rate at this time. Consider adding Dulcolax suppositories. Will discuss with Dr. Cash after he sees the patient and reviews his KUB, to make sure he agrees with continued tube feeding management. Continue to monitor residuals. Discontinue free water flushes. Continue IV fluids at 60 ML's per hour for now. Continue to have the head of the bed elevated at 45 at all times to prevent aspiration. Continue breathing treatments Recheck P2Y-12 platelet function tomorrow 12/26/17 Continue Rocephin and metronidazole for aspiration. Repeat chest x-ray tomorrow. Likely discontinue antibiotics if no infiltrates and white count not worsening. Tube feedings with two thirds TwoCal HN and one third water to run at 50 ML's per hour. Increase by 10 mL's every 6 hours as tolerated up to 65 ML's per hour as tolerated. Decrease free water to 40 ML's per hour. Guaifenesin to help decrease the thickness of the phlegm in his throat. Wound and skin consult regarding skin breakdown on his toes and regarding heel pain and abrasions on his back Check CBC and basic metabolic profile tomorrow Recheck P2Y12 platelet function tomorrow Discussed with Dr. Cash, if testing shows platelets are no longer affected by Plavix and the patient is tolerating tube feedings, will likely undergo PEG tube placement in the next 1-2 days. Continue to elevate the head of the bed at 45 to prevent aspiration Continue doxycycline for chronic MRSA infection Discussed with the patient, his nurse, and Dr. Cash. Will attempt to call patient's family to update them. 12/27/17 White count is normalized. No pneumonia on chest x-ray. We'll discontinue Rocephin and metronidazole for aspiration. Change to feeds to Jevity 1.2 to run at 55 ML's per hour. We'll give 500 ML's free water in addition. Check P2 Y 12 tomorrow. If this is greater than 237, plan is for surgery tomorrow for PEG tube placement. Discussed with Dr. Cahs, family and the patient. The patient still wants to proceed with PEG tube placement. Wound and skin nurses were consulted regarding small lesions on his toes, and abrasions on his back. 12/28/17 The patient underwent PEG tube placement this morning and did well. Per Dr. Cash, the patient can have his oral meds per PEG today. He will likely start tube feeding tomorrow. The patient can restart his Plavix on 12/30/2017. The patient may have NT suctioning by RT when necessary. Continue guaifenesin for thickened secretions 12/29/17 The patient underwent PEG tube placement yesterday and is doing well with tube feedings. The patient can restart his Plavix on 12/30/2017. Continue IV pantoprazole-endoscopic findings of gastritis with small antral ulcers noted. Pathology pending. Cont doxycycline which he is on chronically for suppression of MRSA infection in his back. He had 4 days of ceftriaxone and Flagyl for possible aspiration PNA. Plan to dismiss to [facility] at [facility] in the next few days. 12/30/17 Tube feeding initiated on 12/29/17 at 55ml/hr, rate increased to 70 mL/hr today. Plavix was resumed today. Continue Protonix - gastric biopsies revealed mild chronic gastritis with reactive epithelial changes; no metaplasia, dysplasia or malignant neoplasm identified; no Helicobacter. Convert to PPI per PEG in a.m. Continue doxycycline which he is on chronically for suppression of MRSA infection in his back. He had 4 days of ceftriaxone and Flagyl for possible aspiration PNA (12/23/17-12/27/17). Continue guaifenesin for thickened secretions. Suctioning as indicated. Continue to have wound and skin nurses follow his skin lesions on his feet and back. Plan to dismiss to [facility] at [facility] on 12/31/17 to resume care under Dr. Benoit. Home medications converted to oral preps for PEG administration. Avodart changed to Flomax 0.4 QHS due to inability to administer through PEG. Monitor closely for signs of urinary retention. Patient reports he was previously on Ultram PRN back pain. Will resume Ultram 50mg Q8H PRN pain. 12/31/17 Mr. Stanford reports feeling well this morning and denies dyspnea, nausea, or abdominal pain. Nursing reports small bowel movement yesterday. Potential development of diarrhea or loose stools with tube feedings has been discussed with the patient and he is aware that his will need to be brought to the attention of his caregivers should it evolved. Patient is anxious for discharge and to continue rehabilitative efforts. Tolerating tube feedings well. Plan continuation of continuous tube feedings over the weekend with subsequent conversion to bolus feedings with a total of 7 cans Nutren 1.2 daily split into for feedings of 2 cans 3 times a day and one can as a bedtime snack. He should receive 60 mL of free water to flush the tube prior to and after each feeding with small volume flushes with supplemental medications given away from tube feedings. Blames can be adjusted as indicated based on serum sodium levels. Daughter updated prior to discharge. Discharged to [facility] at [facility] under the care of Dr. Benoit. Time spent with patient: discharge greater than 30 minutes Resuscitation Status: Do Not Resuscitate Discharge Plan - Discharge Disposition Discharge Date: 12/31/17 [place]position[place] 03 [place] [facility] [place] *Condition: Stable Reason For Visit (Visit label in EMR): aspiration pneumonitis - Discharge Medications *Discharge Medications: New Albuterol/Ipratropium [Duoneb] 3 ml AEROSOL RTQID each Bisacodyl Supp [Dulcolax] 10 mg RECTALLY TID PRN suppositor PRN Reason: Constipation Clopidogrel [Plavix] 75 mg PEG DAILY tab Diphenhydramine Oral Liq [Benadryl Liquid] 50 mg PEG HS udc Duloxetine [Cymbalta] 20 mg PEG DAILY cap Furosemide Oral Liq [Lasix Oral Liquid] 10 mg PEG DAILY ml Mirtazapine [Remeron] 15 mg PEG HS tab Pantoprazole Tab [Protonix Tab] 40 mg PEG DAILY tab Silodosin [Rapaflo] 8 mg PEG HS cap Sotalol [Betapace] 80 mg PEG BID tab Tamsulosin [Flomax] 0.4 mg PEG HS cap Tramadol [Ultram] 50 mg PEG Q8H PRN tab PRN Reason: Pain Acetaminophen [Tylenol 650 mg/20.3 ml Soln] 500 mg PEG Q5H PRN solution PRN Reason: DISCOMFORT Doxycycline Oral Liq [Vibramycin Liquid] 100 mg PEG BIDWM ml Pravastatin [Pravachol] 80 mg PEG HS tab Ferrous Sulfate Oral Liq [Feosol Liquid (>/= 12yrs old)] 220 mg PO WL ml Continue Cyanocobalamin (B-12) [Vit. B-12] 1,000 mcg INJ MONTHLY #0 Discontinued Doxycycline [Vibramycin] 100 mg PO BID Silodosin [Rapaflo] 8 mg PO HS Dutasteride 0.5 mg PO HS Sotalol [Betapace] 80 mg PO BID Furosemide [Lasix 20 mg Tab] 10 mg PO DAILY Duloxetine HCl 20 mg PO DAILY diphenhydrAMINE HCl [Benadryl] 50 mg PO HS #0 Mirtazapine [Remeron] 15 mg PO HS #0 Pravastatin Sodium 80 mg PO HS #0 Lactose-Reduced Food [Boost High Protein] 1 bottle PO DAILY PRN #0 PRN Reason: Prn Orders Clopidogrel Bisulfate [Clopidogrel] 75 mg PO DAILY - Discharge Packet/Instructions *Diet: nothing by mouth. Tube feeds. Jevity 1.2 at 70ml/hr. Free water slowly 60ml q4 hours. May use 30ml free water to flush meds as needed. *Activity: As tolerated - per PT/OT *Pain Management/Treatment: per MAR *Wound Care: Change Mepilex dressing to skin tear on R arm and to sacral wound q 3 days. Additional Instructions: You will have speech therapy, occupational therapy and physical therapy at the [facility]. Will plan to start bolus feedings on January 04. Patient will require 7 cans of Nutren 1.2 daily with anticipated schedule of 2 cans 3 times a day and one can at bedtime; 60 mL free water pre/ post each feeding and will give approximately 500 mL free water daily with additional water being given periodically with medication flushes. *Expected Signs/Symptoms: per *Notify Physician if: You develop fever, abdominal pain, shortness of breath, chest pain or other new or concerning symptoms *During Business Hours Contact: Nurse at the [facility] *After Business Hours Contact: Nurse at the [facility] *Pending Lab/Results: No Pending Lab - Referrals/Follow Up *Referrals/Follow Up: Wilfred Benoit MD [Primary Care Provider] - 1 Week - Patient Handouts Patient Handouts: Aspiration Pneumonia (GEN) - Dismissal Complete Discharge Instructions are:: Complete Physician Narrative - Narrative Attestation Narrative: Date: 12/31/17 Time: 2143
[2018-01-01] MEDS ORDERED: FERROUS SULFATE 220 MG/5 ML ORAL LIQUID PO SCH (08:00)
[2018-01-01] MEDS ORDERED: CLOPIDOGREL 75 MG TABLET PEG SCH (09:00)
== END 2017-12-31 14:15 | DRG 853 ==
LOC: ED 12:04 → EDHOLD 13:49 → SUATTDRO 13:49 → MED 14:15 → EDHOLD 14:15
PROVIDERS: ADMIT Internal Medicine; ATTEND Internal Medicine